=== PATIENT | male | born 1950 | race Caucasian/White ===

== ENCOUNTER 2018-10-26 13:49 | Inpatient (IN) | payer MEDICARE, OTHER ==
[2018-10-26] MEDS ORDERED: ACETAMINOPHEN 325 MG TABLET PO ONE (14:16)
[2018-10-26] MEDS ORDERED: DIPH/PERTUSS(ACELL)/TETANUS VAC/PF 0.5 ML SYR (>=10YO) IM ONE (14:16)
[2018-10-26] MEDS ORDERED: NORMAL SALINE 1000 ML 1,000 ML IV ONE ×2 (14:24→18:15)
[2018-10-26 14:57] LABS: VENOUS BLOOD BASE EXCESS -0.9 mmol/L; VENOUS BLOOD PCO2 36.1 mmHg (35-63); VENOUS BLOOD PH 7.42 (7.30-7.42)
[2018-10-26 14:58] LABS: HEMATOCRIT 41.7 % (37.9-51.0); HEMOGLOBIN 15.3 g/dL (13.5-17.0); MEAN CORPUSCULAR HGB CONC 36.8 g/dL (32.0-36.0); MEAN CORPUSCULAR VOLUME 92 fl (80-97); PLATELET COUNT 143 10^3/uL (150-450); RED BLOOD COUNT 4.51 10^6/uL (4.35-5.55); RED CELL DISTRIBUTION WIDTH 12.3 % (11.5-14.0); WHITE BLOOD COUNT 11.2 10^3/uL (4.0-10.5)
[2018-10-26 15:03] LABS: PROTHROMBIN TIME 13.7 SEC (11.4-15.4)
[2018-10-26 15:05] LABS: D-DIMER 2.58 ug/mL (0.00-0.50)
[2018-10-26 15:13] LABS: ALANINE AMINOTRANSFERASE 46 U/L (21-72); ALBUMIN 4.4 g/dL (3.5-5.0); ALKALINE PHOSPHATASE 112 U/L (38-126); ANION GAP 13 (5-19); ASPARTATE AMINO TRANSFERASE 89 U/L (17-59); BILIRUBIN,DIRECT 0.6 mg/dL (0.0-0.4); BILIRUBIN,TOTAL 1.7 mg/dL (0.2-1.3); BLOOD UREA NITROGEN 10 mg/dL (7-20); CARBON DIOXIDE 23 mmol/L (22-30); CHLORIDE 78 mmol/L (98-107); GLUCOSE 155 mg/dL (75-110); POTASSIUM 4.3 mmol/L (3.6-5.0); TOTAL PROTEIN 7.1 g/dL (6.3-8.2)
--- NOTE | 2018-10-26 15:17 | RADIOLOGY REPORT (SQ) ---
EXAM DESCRIPTION: CT HEAD WITHOUT; CT FACIAL AREA WITHOUT COMPLETED DATE/TIME: 10/26/2018 3:09 pm REASON FOR STUDY: weakness, fall, facial injury COMPARISON: None. TECHNIQUE: Axial images acquired through the brain and facial bones without intravenous contrast. I mages reviewed with bone, brain and subdural windows. Additional sagittal and coronal reconstruction s were generated. Images stored on PACS. All CT scanners at this facility use dose modulation, iterative reconstruction, and/or weight based d osing when appropriate to reduce radiation dose to as low as reasonably achievable (ALARA). [facility]: Dose Right [facility]: CareDose [facility]: Dose Right [facility]: Teradose 4D [facility]: [employer] RADIATION DOSE: CT Rad equipment meets quality standard of care and radiation dose reduction techniq ues were employed. CTDIvol: 53.2 mGy. DLP: 1097 mGy-cm.; CT Rad equipment meets quality standard of c are and radiation dose reduction techniques were employed. CTDIvol: 30.4 mGy. DLP: 600 mGy-cm. mGy. LIMITATIONS: None. FINDINGS: VENTRICLES: Normal size and contour. CEREBRUM: No masses. No hemorrhage. No midline shift. No evidence for acute infarction. Normal gra y/white matter differentiation. No areas of low density in the white matter. CEREBELLUM: No masses. No hemorrhage. No alteration of density. No evidence for acute infarction. EXTRAAXIAL SPACES: No fluid collections. No masses. FACIAL BONES: No displaced fractures. ORBITS AND GLOBE: No intra- or extraconal masses. Normal contour of globe without masses. CALVARIUM: No fracture. PARANASAL SINUSES: No fluid or mucosal thickening. SOFT TISSUES: Soft tissue laceration and hematoma of the forehead. OTHER: No other significant finding. IMPRESSION: 1. No acute intracranial pathology. 2. No displaced fractures of the facial bones. 3. Soft tissue laceration and hematoma of the forehead. EVIDENCE OF ACUTE STROKE: NO. COMMENT: Quality ID # [id number]: Final reports with documentation of one or more dose reduction techniques (e.g., Automated exposure control, adjustment of the mA and/or kV according to patient size, use of iterative reconstruction technique) TECHNICAL DOCUMENTATION: JOB ID: [id number] [employer]- All Rights Reserved Reading location - IP/workstation name: [email or web address]
--- NOTE | 2018-10-26 15:18 | RADIOLOGY REPORT (SQ) ---
EXAM DESCRIPTION: CT CERVICAL SPINE WITHOUT COMPLETED DATE/TIME: 10/26/2018 3:09 pm REASON FOR STUDY: weakness, fall, facial injury COMPARISON: None. TECHNIQUE: Axial images acquired through the cervical spine without intravenous contrast. Images re viewed with lung, soft tissue and bone windows. Reconstructed coronal and sagittal MPR images review ed. Images stored on PACS. All CT scanners at this facility use dose modulation, iterative reconstruction, and/or weight based d osing when appropriate to reduce radiation dose to as low as reasonably achievable (ALARA). [facility]: Dose Right [facility]: CareDose [facility]: Dose Right [facility]: Teradose 4D [facility]: Smart [employer] RADIATION DOSE: CT Rad equipment meets quality standard of care and radiation dose reduction techniq ues were employed. CTDIvol: 24.4 mGy. DLP: 464 mGy-cm. mGy. LIMITATIONS: None. FINDINGS: ALIGNMENT: Anatomic. MINERALIZATION: Normal. VERTEBRAL BODIES: No fractures or dislocation. DISCS: Generally moderate multilevel disc degenerative disease of the cervical spine, focally severe at C5-C6. FACETS, LATERAL MASSES, POSTERIOR ELEMENTS: Moderate to severe multilevel facet degenerative disease . No fractures. No dislocation. No acute findings. HARDWARE: None in the spine. VISUALIZED RIBS: No fractures. LUNG APICES AND SOFT TISSUES: No significant or acute findings. OTHER: No other significant finding. IMPRESSION: No fracture or static subluxation of the cervical spine. TECHNICAL DOCUMENTATION: JOB ID: [id number] Quality ID # [id number]: Final reports with documentation of one or more dose reduction techniques (e.g., Au tomated exposure control, adjustment of the mA and/or kV according to patient size, use of iterative reconstruction technique) 2010 [email or web address]- All Rights Reserved Reading location - IP/workstation name: [email or web address]
[2018-10-26 15:22] LABS: ALCOHOL < 10 mg/dL (NONE DETECTED); CREATINE KINASE 2378 U/L (55-170)
[2018-10-26 15:25] LABS: CREATINE KINASE MB 12.4 ng/mL (<4.55)
--- NOTE | 2018-10-26 15:27 | RADIOLOGY REPORT (SQ) ---
EXAM DESCRIPTION: CHEST 2 VIEWS COMPLETED DATE/TIME: 10/26/2018 3:12 pm REASON FOR STUDY: cough, weakness COMPARISON: None. EXAM PARAMETERS: NUMBER OF VIEWS: two views TECHNIQUE: Digital Frontal and Lateral radiographic views of the chest acquired. RADIATION DOSE: NA LIMITATIONS: none FINDINGS: LUNGS AND PLEURA: No opacities, masses or pneumothorax. No pleural effusion. MEDIASTINUM AND HILAR STRUCTURES: No masses or contour abnormalities. HEART AND VASCULAR STRUCTURES: Heart normal size. No evidence for failure. BONES: No acute findings. HARDWARE: None in the chest. OTHER: No other significant finding. IMPRESSION: NO ACUTE RADIOGRAPHIC FINDING IN THE CHEST. TECHNICAL DOCUMENTATION: JOB ID: [id number] [employer]- All Rights Reserved Reading location - IP/workstation name: [email or web address]
[2018-10-26 15:35] LABS: TROPONIN I 0.053 ng/mL
[2018-10-26 15:47] LABS: ABSOLUTE LYMPHOCYTES# (MANUAL) 0.3 10^3/uL (0.5-4.7); ABSOLUTE MONOCYTES # (MANUAL) 0.8 10^3/uL (0.1-1.4); ABSOLUTE NEUTROPHILS# (MANUAL) 10.1 10^3/uL (1.7-8.2); BASOPHILS % (MANUAL) 0 % (0-2); EOSINOPHILS % (MANUAL) 0 % (0-6); LYMPHOCYTES % (MANUAL) 3 % (13-45); MONOCYTES % (MANUAL) 7 % (3-13); SEGMENTED NEUTROPHILS % (MAN) 90 % (42-78); TOTAL CELLS COUNTED 100
[2018-10-26 15:48] LABS: PLATELET COMMENT DECREASED; TOXIC GRANULATION SLIGHT; TOXIC VACUOLATION PRESENT
--- NOTE | 2018-10-26 16:00 | ER Document Report ---
ED Dizziness/Weakness <LEILA RUGGIERO Hector - Last Filed: 10/26/18 16:00> - General Mode of Arrival: Medic Information source: Patient - HPI Patient complains to provider of: Weakness Onset: Last week Onset/Duration: Worse Quality of pain: No pain Associated symptoms: Loss of strength, Recent fall. denies: Chest pain, Confused, Fainted, Headache, Less responsive, Nausea, Short of breath, Vertigo, Vomiting Baseline gait: Walks w/o assistance <LARA CURTIS - Last Filed: 10/26/18 20:02> - General Chief Complaint: General Weakness Stated Complaint: LEG WEAKNESS Time Seen by Provider: 10/26/18 14:03 Notes: Patient presents with a complaint of generalized weakness. Patient states he has had a cold for the past week and felt generally weak over that same time period. Patient states that he was taken his son to a doctor's appointment and got weak in his extremities and fell hitting his head. There was no loss of consciousness and patient denies any syncopal episode. Patient does have abrasions to bilateral hands and facial area with forehead swelling. Patient denies any nausea or vomiting. Patient states that several hours later he was walking across his yard and felt very weak and fell in the yard and was unable to get up and walk anymore. Patient was assisted but had a very unsteady gait with EMS. Patient denies any chest pain, abdominal pain or back pain. Patient denies any headache, nausea or vomiting. Patient does admit to drinking about 12 beers a day although states he only had about 4 or 5 beers yesterday and has not had any alcohol today. Patient denies any use of drugs. Patient denies any significant medical history although does not see a physician regularly. (LARA CURTIS) - Related Data Allergies/Adverse Reactions: No Known Allergies Allergy (Verified 10/26/18 15:34) Past Medical History - General Information source: Patient - Social History Smoking Status: Former Smoker Frequency of alcohol use: Heavy Drug Abuse: None Occupation: None Lives with: Family Family History: Reviewed & Not Pertinent Patient has suicidal ideation: No Patient has homicidal ideation: No - Medical History Medical History: Negative Renal/ Medical History: Denies: Hx Peritoneal Dialysis Past Surgical History: Reports: Hx Herniorrhaphy <LARA CURTIS - Last Filed: 10/26/18 20:02> Review of Systems - Review of Systems Constitutional: Weakness, Recent illness - Recent upper respiratory symptoms. denies: Fever EENT: No symptoms reported Cardiovascular: No symptoms reported. denies: Chest pain, Palpitations, Syncope, Dizziness Respiratory: Cough. denies: Short of breath Gastrointestinal: No symptoms reported. denies: Abdominal pain, Nausea, Vomiting Genitourinary: No symptoms reported. denies: Dysuria, Flank pain Male Genitourinary: No symptoms reported Musculoskeletal: No symptoms reported. denies: Back pain, Muscle pain Skin: No symptoms reported Hematologic/Lymphatic: No symptoms reported Neurological/Psychological: Weakness - Generalized. denies: Confusion, Dementia, Lost consciousness, Headaches <LARA CURTIS - Last Filed: 10/26/18 20:02> Physical Exam - General General appearance: Appears well, Alert In distress: Mild - HEENT Head: Abrasions - Abrasion to forehead, Ecchymosis. No: Racoon's eyes Eyes: Normal Conjunctiva: Normal Extraocular movements intact: Yes Eyelashes: Normal Pupils: PERRL Ears: Normal External canal: Normal Tympanic membrane: Normal. No: Hemotympanum Nasal: Normal Mouth/Lips: Normal. No: Dental fracture Mucous membranes: Normal Pharynx: Normal Neck: Normal, Supple. No: Lymphadenopathy, Meningismus - Respiratory Respiratory status: No respiratory distress Chest status: Nontender Breath sounds: Nonproductive cough, Rhonchi Chest palpation: Normal. No: Tender - Cardiovascular Rhythm: Regular Heart sounds: S1 appreciated, S2 appreciated Murmur: No - Abdominal Inspection: Obese Distension: No distension Bowel sounds: Normal Tenderness: Nontender Organomegaly: No organomegaly - Back Back: Normal. No: Deformity/step-off, CVA tenderness, Vertebra tenderness - Extremities General upper extremity: Normal inspection, Nontender. No: Normal strength - Patient unable to hold leg off of the stretcher for at least 5 seconds against gravity General lower extremity: Normal inspection, Nontender. No: Normal strength - Patient unable to hold extremity off of stretcher longer than 5 seconds against gravity - Neurological Neuro grossly intact: Yes Cognition: Normal Bet[place] Coma Scale Eye Opening: Spontaneous Foreign Coma Scale Verbal: Oriented Foreign Coma Scale Motor: Obeys Commands Foreign Coma Scale Total: 15 Speech: Normal. No: Dysarthria Cranial nerves: Normal. No: Facial palsy Additional motor exam normals: Weakness - Diffuse generalized - Psychological Associated symptoms: Normal affect, Normal mood - Skin Skin Temperature: Warm Skin Moisture: Dry Skin irregularity: other - Abrasion with superficial laceration to forehead, scattered abrasions to bilateral hands <LARA CURTIS - Last Filed: 10/26/18 20:02> - Vital signs Vitals: Pulse Ox 95 10/26/18 14:15 Course - Laboratory Result Diagrams: 10/26/18 14:30 10/26/18 14:30 <LEILA RUGGIERO - Last Filed: 10/26/18 16:00> - Laboratory Result Diagrams: 10/26/18 14:30 10/26/18 14:30 - Diagnostic Test Radiology reviewed: Reports reviewed <KIRSTENLARA - Last Filed: 10/26/18 20:02> - Re-evaluation Re-evalutation: 10/26/18 16:00 I personally evaluated this patient. He is mentating appropriately and in no acute distress. His sodium was 114 and I asked nursing to place seizure precautions on the bed. Patient is a daily alcoholic and has a negative alcohol level. He denies history of alcohol withdrawal symptoms in the past but is at risk for acute alcohol withdrawal seizures as well as hyponatremic seizures. Patient will be admitted to the hospital for further care. His complete workup is not resulted at this time however I agree with all plan of care already established. (LEILA RUGGIERO) 10/26/18 16:[address] Leila Ruggiero regarding patient presentation and diagnostic evaluation. Agrees with plan for admission, although advises waiting for results of CTA to result first. Patient continues to deny any recent syncopal episode. States that he fell due to generalized weakness. Patient does have an elevated troponin although denies any chest pain symptoms. Patient does complain of nonproductive cough at this time. Patient denies any recent bedrest or recent immobilization. Patient with elevated d-dimer test. Patient continues to deny any pain complaints symptoms. Patient's tachycardia improved at this time. Family at bedside and updated regarding admission plan of care. Patient is agreeable with admission at this time. 10/26/18 18:32 Patient CTA reviewed, no concern for PE or pneumonia. Consulted with hospitalist Elizabeth SERVIN who agrees to accept patient for admission to telemetry med bed at this time. 10/26/18 19:59 (LARA CURTIS) - Vital Signs Vital signs: Temp Pulse Resp BP Pulse Ox 19 165/81 H 95 10/26/18 19:01 10/26/18 19:01 10/26/18 19:01 - Laboratory Laboratory results interpreted by me: 10/26/18 10/26/18 10/26/18 14:30 14:30 14:30 WBC 11.2 H MCH 34.0 H MCHC 36.8 H Plt Count 143 L Seg Neuts % (Manual) 90 H Lymphocytes % (Manual) 3 L Abs Neuts (Manual) 10.1 H Abs Lymphs (Manual) 0.3 L D-Dimer 2.58 H Sodium 114.0 L* Chloride 78 L Glucose 155 H POC Glucose Total Bilirubin 1.7 H Direct Bilirubin 0.6 H AST 89 H Creatine Kinase 2378 H CK-MB (CK-2) 10/26/18 10/26/18 14:30 15:42 WBC MCH MCHC Plt Count Seg Neuts % (Manual) Lymphocytes % (Manual) Abs Neuts (Manual) Abs Lymphs (Manual) D-Dimer Sodium Chloride Glucose POC Glucose 147 H Total Bilirubin Direct Bilirubin AST Creatine Kinase CK-MB (CK-2) 12.40 H 10/26/18 18:33 Labs- Entire Visit 10/26/18 10/26/18 10/26/18 14:30 14:30 14:30 WBC 11.2 H RBC 4.51 Hgb 15.3 Hct 41.7 MCV 92 MCH 34.0 H MCHC 36.8 H RDW 12.3 Plt Count 143 L Total Counted 100 Seg Neutrophils % Not Reportable Seg Neuts % (Manual) 90 H Lymphocytes % Not Reportable Lymphocytes % (Manual) 3 L Monocytes % Not Reportable Monocytes % (Manual) 7 Eosinophils % Not Reportable Eosinophils % (Manual) 0 Basophils % Not Reportable Basophils % (Manual) 0 Absolute Neutrophils Not Reportable Abs Neuts (Manual) 10.1 H Absolute Lymphocytes Not Reportable Abs Lymphs (Manual) 0.3 L Absolute Monocytes Not Reportable Abs Monocytes (Manual) 0.8 Absolute Eosinophils Not Reportable Absolute Eos (Manual) 0.0 Absolute Basophils Not Reportable Abs Basophils (Manual) 0.0 Toxic Granulation SLIGHT Toxic Vacuolation PRESENT Platelet Comment DECREASED PT 13.7 INR 1.00 D-Dimer 2.58 H VBG pH VBG pCO2 VBG HCO3 VBG Base Excess Sodium 114.0 L* Potassium 4.3 Chloride 78 L Carbon Dioxide 23 Anion Gap 13 BUN 10 Creatinine 0.61 Est GFR ( Amer) > 60 Est GFR (Non-Af Amer) > 60 Glucose 155 H POC Glucose Lactic Acid Calcium 9.0 Magnesium 2.1 Total Bilirubin 1.7 H Direct Bilirubin 0.6 H Neonat Total Bilirubin Not Reportable Neonat Direct Bilirubin Not Reportable Neonat Indirect Bili Not Reportable AST 89 H ALT 46 Alkaline Phosphatase 112 Creatine Kinase 2378 H CK-MB (CK-2) Troponin I Total Protein 7.1 Albumin 4.4 TSH Serum Alcohol < 10 10/26/18 10/26/18 10/26/18 14:30 14:30 14:30 WBC RBC Hgb Hct MCV MCH MCHC RDW Plt Count Total Counted Seg Neutrophils % Seg Neuts % (Manual) Lymphocytes % Lymphocytes % (Manual) Monocytes % Monocytes % (Manual) Eosinophils % Eosinophils % (Manual) Basophils % Basophils % (Manual) Absolute Neutrophils Abs Neuts (Manual) Absolute Lymphocytes Abs Lymphs (Manual) Absolute Monocytes Abs Monocytes (Manual) Absolute Eosinophils Absolute Eos (Manual) Absolute Basophils Abs Basophils (Manual) Toxic Granulation Toxic Vacuolation Platelet Comment PT INR D-Dimer VBG pH 7.42 VBG pCO2 36.1 VBG HCO3 23.0 VBG Base Excess -0.9 Sodium Potassium Chloride Carbon Dioxide Anion Gap BUN Creatinine Est GFR ( Amer) Est GFR (Non-Af Amer) Glucose POC Glucose Lactic Acid 2.0 Calcium Magnesium Total Bilirubin Direct Bilirubin Neonat Total Bilirubin Neonat Direct Bilirubin Neonat Indirect Bili AST ALT Alkaline Phosphatase Creatine Kinase CK-MB (CK-2) 12.40 H Troponin I 0.053 Total Protein Albumin TSH Serum Alcohol 10/26/18 10/26/18 14:30 15:42 WBC RBC Hgb Hct MCV MCH MCHC RDW Plt Count Total Counted Seg Neutrophils % Seg Neuts % (Manual) Lymphocytes % Lymphocytes % (Manual) Monocytes % Monocytes % (Manual) Eosinophils % Eosinophils % (Manual) Basophils % Basophils % (Manual) Absolute Neutrophils Abs Neuts (Manual) Absolute Lymphocytes Abs Lymphs (Manual) Absolute Monocytes Abs Monocytes (Manual) Absolute Eosinophils Absolute Eos (Manual) Absolute Basophils Abs Basophils (Manual) Toxic Granulation Toxic Vacuolation Platelet Comment PT INR D-Dimer VBG pH VBG pCO2 VBG HCO3 VBG Base Excess Sodium Potassium Chloride Carbon Dioxide Anion Gap BUN Creatinine Est GFR ( Amer) Est GFR (Non-Af Amer) Glucose POC Glucose 147 H Lactic Acid Calcium Magnesium Total Bilirubin Direct Bilirubin Neonat Total Bilirubin Neonat Direct Bilirubin Neonat Indirect Bili AST ALT Alkaline Phosphatase Creatine Kinase CK-MB (CK-2) Troponin I Total Protein Albumin TSH 1.46 Serum Alcohol (LARA UCRTIS) Discharge <LEILA RUGGIERO - Last Filed: 10/26/18 16:00> - Discharge Admitting Provider: Hospitalist Unit Admitted: ICU <LARA CURTIS - Last Filed: 10/26/18 20:02> - Discharge Clinical Impression: Hyponatremia, Hypochloremia, ETOHism, Weakness Condition: Fair Disposition: ADMITTED INPATIENT
[2018-10-26] MEDS ORDERED: ASPIRIN 81 MG TABLET, CHEWABLE PO ONE (16:10)
[2018-10-26] MEDS ORDERED: THIAMINE HCL 100 MG, FOLIC ACID 1 MG in NORMAL SALINE 250 ML IV ONE (18:14)
--- NOTE | 2018-10-26 18:24 | RADIOLOGY REPORT (SQ) ---
EXAM DESCRIPTION: CTA CHEST COMPLETED DATE/TIME: 10/26/2018 6:11 pm REASON FOR STUDY: ?syncope, elevated dimer COMPARISON: None. TECHNIQUE: CT scan of the chest performed using helical scanning technique with dynamic intravenous contrast injection. Images reviewed with lung, soft tissue and bone windows. Reconstructed coronal and sagittal MPR images reviewed. Additional 3 dimensional post-processing performed to develop Maximal Intensity Projection images (MA P). All images stored on PACS. All CT scanners at this facility use dose modulation, iterative reconstruction, and/or weight based d osing when appropriate to reduce radiation dose to as low as reasonably achievable (ALARA). [facility]: Dose Right [facility]: CareDose [facility]: Dose Right [facility]: Teradose 4D [facility]: [employer] CONTRAST TYPE AND DOSE: contrast/concentration: Isovue 350.00 mg/ml; Total Contrast Delivered: 84.0 ml; Total Saline Delivered: 110.0 ml Contrast bolus adequate for pulmonary arteries and aorta. RENAL FUNCTION: BUN 10 creatinine 0.61. RADIATION DOSE: CT Rad equipment meets quality standard of care and radiation dose reduction techniq ues were employed. CTDIvol: 29.4 - 33.1 mGy. DLP: 1168 mGy-cm. . LIMITATIONS: None. FINDINGS: LUNGS AND PLEURA: Basilar scarring. No masses, infiltrates, or pneumothorax. No pleural effusions or pleural calcifications. AORTA AND GREAT VESSELS: No aneurysm. No dissection. HEART: No pericardial effusion. No significant coronary artery calcifications. PULMONARY ARTERIES: No emboli visualized in the main pulmonary arteries or the segmental branches. HILAR AND MEDIASTINAL STRUCTURES: No identified masses or abnormal nodes. HARDWARE: None in the chest. UPPER ABDOMEN: No significant findings. Limited exam. THYROID AND OTHER SOFT TISSUES: No masses. No adenopathy. BONES: No acute or significant finding. 3D MIPS: Confirm above findings. OTHER: No other significant finding. IMPRESSION: NORMAL CTA OF THE CHEST. NO PULMONARY EMBOLI. COMMENT: Quality ID # [id number]: Final reports with documentation of one or more dose reduction techniques (e.g., Automated exposure control, adjustment of the mA and/or kV according to patient size, use of iterative reconstruction technique) TECHNICAL DOCUMENTATION: JOB ID: [id number] [employer]- All Rights Reserved Reading location - IP/workstation name: [email or web address]
[2018-10-26] MEDS ORDERED: IPRATROPIUM/ALBUTEROL 0.5-2.5 MG/3 ML AMPUL NEB ONE (18:35)
[2018-10-26] MEDS ORDERED: MAG HYDROX/AL HYDROX/SIMETH SUSP 30 ML UDCUP PO PRN (18:55)
[2018-10-26] MEDS ORDERED: ONDANSETRON HCL INJ/PF 4 MG/2 ML SDV IV PRN (18:55)
[2018-10-26] MEDS ORDERED: IPRATROPIUM/ALBUTEROL 0.5-2.5 MG/3 ML AMPUL NEB PRN (18:55)
[2018-10-26] MEDS ORDERED: MAGNESIUM HYDROXIDE SUSP 30 ML UDCUP PO PRN (18:55)
[2018-10-26] MEDS ORDERED: FUROSEMIDE INJ/PF 20 MG/2 ML SDV IV ONE (19:45)
[2018-10-26] MEDS: IPRATROPIUM/ALBUTEROL 0.5-2.5 MG/3 ML AMPUL NEB SCH (19:54)
[2018-10-26] MEDS: LORAZEPAM 1 MG TABLET PO SCH (19:55)
[2018-10-26 20:15] LABS: APPEARANCE,URINE CLEAR; BILIRUBIN,URINE NEGATIVE (NEGATIVE); COLOR,URINE YELLOW; GLUCOSE, URINE >=500 mg/dL (NEGATIVE); KETONES,URINE 20 mg/dL (NEGATIVE); LEUKOCYTE ESTERASE,URINE NEGATIVE (NEGATIVE); NITRITE,URINE NEGATIVE (NEGATIVE); PROTEIN,URINE 30 mg/dL (NEGATIVE); URINE SPECIFIC GRAVITY 1.018; UROBILINOGEN,URINE NEGATIVE mg/dL (<2.0)
[2018-10-26 20:47] LABS: ANION GAP 15 (5-19); BLOOD UREA NITROGEN 8 mg/dL (7-20); CALCIUM 8.5 mg/dL (8.4-10.2); CARBON DIOXIDE 19 mmol/L (22-30); CHLORIDE 84 mmol/L (98-107); GLUCOSE 129 mg/dL (75-110); POTASSIUM 3.7 mmol/L (3.6-5.0)
[2018-10-26 20:58] LABS: LIPASE 161.1 U/L (23-300); PHOSPHORUS 3.2 mg/dL (2.5-4.5)
[2018-10-26 21:07] LABS: SODIUM 118.3 mmol/L (137-145)
--- NOTE | 2018-10-26 21:23 | EKG REPORT ---
SEVERITY:- ABNORMAL ECG - SINUS TACHYCARDIA RIGHT BUNDLE BRANCH BLOCK : Confirmed by: Brittany Valenzuela MD 26-Oct-2018 21:23:04
[2018-10-26] MEDS: HEPARIN SOD (PORCINE) 5,000 UNIT/ML 1 ML SYRINGE SUBCUT SCH (22:28)
[2018-10-26] MEDS: AZITHROMYCIN 500 MG in DEXTROSE 5%-WATER 250 ML IV SCH (22:28)
[2018-10-27] MEDS: IPRATROPIUM/ALBUTEROL 0.5-2.5 MG/3 ML AMPUL NEB SCH ×3 (00:34→16:33)
[2018-10-27] MEDS ORDERED: LORAZEPAM INJ 2 MG/1 ML VIAL IV ONE (02:00)
[2018-10-27 02:40] LABS: ABSOLUTE LYMPHOCYTES (AUTO) 0.8 10^3/uL (0.5-4.7); ABSOLUTE MONOCYTES (AUTO) 0.8 10^3/uL (0.1-1.4); ABSOLUTE NEUT (AUTO) 6.9 10^3/uL (1.7-8.2); BASOPHILS % (AUTO) 0.2 % (0-2); HEMATOCRIT 41.7 % (37.9-51.0); HEMOGLOBIN 15.1 g/dL (13.5-17.0); LYMPHOCYTES % (AUTO) 9.5 % (13-45); MEAN CORPUSCULAR HEMOGLOBIN 33.8 pg (27.0-33.4); MEAN CORPUSCULAR HGB CONC 36.2 g/dL (32.0-36.0); MEAN CORPUSCULAR VOLUME 93 fl (80-97); MONOCYTES % (AUTO) 9.5 % (3-13); PLATELET COUNT 113 10^3/uL (150-450); RED BLOOD COUNT 4.47 10^6/uL (4.35-5.55); RED CELL DISTRIBUTION WIDTH 12.1 % (11.5-14.0); SEGMENTED NEUTROPHILS % (AUTO) 80.8 % (42-78); TOTAL CELLS COUNTED % (AUTO) 100 %; WHITE BLOOD COUNT 8.6 10^3/uL (4.0-10.5)
[2018-10-27 02:58] LABS: ALANINE AMINOTRANSFERASE 47 U/L (21-72); ALBUMIN 3.6 g/dL (3.5-5.0); ALKALINE PHOSPHATASE 96 U/L (38-126); ASPARTATE AMINO TRANSFERASE 122 U/L (17-59); BILIRUBIN,DIRECT 0.4 mg/dL (0.0-0.4); BILIRUBIN,TOTAL 1.3 mg/dL (0.2-1.3); BLOOD UREA NITROGEN 8 mg/dL (7-20); CALCIUM 8.3 mg/dL (8.4-10.2); CARBON DIOXIDE 23 mmol/L (22-30); CHLORIDE 85 mmol/L (98-107); GLUCOSE 122 mg/dL (75-110); POTASSIUM 3.5 mmol/L (3.6-5.0); TOTAL PROTEIN 6.3 g/dL (6.3-8.2)
[2018-10-27 03:00] LABS: ANION GAP 13 (5-19)
[2018-10-27 03:10] LABS: CREATINE KINASE MB 11.5 ng/mL (<4.55); SODIUM 120.9 mmol/L (137-145); TROPONIN I 0.046 ng/mL
[2018-10-27 03:19] LABS: CREATINE KINASE 4848 U/L (55-170)
[2018-10-27] MEDS: LORAZEPAM 1 MG TABLET PO SCH (03:24)
[2018-10-27] MEDS ORDERED: HYDRALAZINE HCL INJ/PF 20 MG/1 ML SDV IV ONE (05:15)
--- NOTE | 2018-10-27 05:23 | PDOC H&P ---
History of Present Illness Admission Date/PCP: 10/26/18 18:51 Patient complains of: Generalized weakness and falls History of Present Illness: SONDRA GIPSON is a 67 year old male with a past medical history of alcohol dependence who presents with approximately 1 week of generalized weakness and at least 2 falls to the ground with inability return to standing. During each event he states he simply felt weak and his legs gave out. No loss of consciousness, limb shaking, dizziness or resulting headache, blurred vision nausea or vomiting. He did sustain a 4 cm laceration to the left forehead not requiring sutures. In the emergency room he is found with a sodium of 114, tremulous with global wheezing requiring albuterol, Atrovent and BiPAP. He denies history of COPD but has a [id number] smoking discontinuing 20 years ago. He admits to alcohol drinking habit of approximately 12 beers per day he denies a history of alcohol withdrawal, blackout or seizure but does not recall the last time he went without drinking. Past Medical History Medical History: None Psychiatric Medical History: Reports: Alcohol Dependency Past Surgical History Past Surgical History: Reports: Herniorrhaphy Social History Information Source: Patient Lives with: Family Smoking Status: Former Smoker Frequency of Alcohol Use: Heavy Amount of Alcoholic Beverages Per Day: 12-beer minimum Hx Recreational Drug Use: No Hx Prescription Drug Abuse: No - Advance Directive Resuscitation Status: Full Code Family History Family History: COPD Parental Family History Reviewed: Yes Children Family History Reviewed: Yes Sibling(s) Family History Reviewed.: Yes Medication/Allergy Home Medications: No Home Medications 10/26/18 Allergies/Adverse Reactions: No Known Allergies Allergy (Verified 10/26/18 15:34) Review of Systems Constitutional: PRESENT: as per HPI, fatigue, weakness. ABSENT: fever(s), headache(s) Eyes: ABSENT: visual disturbances Ears: ABSENT: hearing changes Cardiovascular: PRESENT: edema, palpitations. ABSENT: dyspnea on exertion, orthropnea Respiratory: PRESENT: as per HPI, cough, dyspnea, sputum. ABSENT: hemoptysis Gastrointestinal: PRESENT: as per HPI, bloating. ABSENT: constipation, nausea, vomiting Musculoskeletal: PRESENT: as per HPI, muscle weakness. ABSENT: back pain, deformity, joint swelling Integumentary: PRESENT: as per HPI - Forehead laceration, abrasions to the knuckles and knees. ABSENT: rash, wounds Neurological: PRESENT: as per HPI, abnormal gait, abnormal movements, focal weakness, frequent falls, lack of coordination, numbness, paresthesias, weakness. ABSENT: confusion, convulsions, dizziness, memory loss, syncope Psychiatric: ABSENT: anxiety, depression, homidical ideation, suicidal ideation Endocrine: ABSENT: cold intolerance, heat intolerance, polydipsia, polyuria Hematologic/Lymphatic: ABSENT: easy bleeding, easy bruising Physical Exam Vital Signs: Temp Pulse Resp BP Pulse Ox 99.1 F 106 H 17 175/84 H 95 10/27/18 03:51 10/26/18 23:32 10/27/18 02:00 10/27/18 01:41 10/27/18 02:00 Intake & Output 10/25/18 10/26/18 10/27/18 11:59 11:59 11:59 Intake Total 1684.2 Output Total 1100 Balance 584.2 Weight 90.9 kg General appearance: PRESENT: cooperative, disheveled, morbidly obese, severe distress Head exam: PRESENT: normocephalic, other - 4 cm scalp laceration to left forehead. No exudate Eye exam: PRESENT: conjunctiva pink, EOMI, PERRLA. ABSENT: scleral icterus Ear exam: PRESENT: normal external ear exam Mouth exam: PRESENT: moist, tongue midline Neck exam: ABSENT: carotid bruit, JVD, lymphadenopathy, thyromegaly Respiratory exam: PRESENT: accessory muscle use, crackles, prolonged expiratory phas, rales, symmetrical, tachypnea, wheezes. ABSENT: rhonchi Cardiovascular exam: PRESENT: RRR, tachycardia. ABSENT: diastolic murmur, rubs, systolic murmur Pulses: PRESENT: normal dorsalis pedis pul Vascular exam: PRESENT: normal capillary refill GI/Abdominal exam: PRESENT: normal bowel sounds, soft. ABSENT: distended, guarding, mass, organolmegaly, rebound, tenderness Rectal exam: PRESENT: deferred Extremities exam: PRESENT: full ROM. ABSENT: calf tenderness, clubbing, pedal edema Neurological exam: PRESENT: alert, awake, oriented to person, oriented to place, oriented to time, oriented to situation, CN II-XII grossly intact. ABSENT: motor sensory deficit Psychiatric exam: PRESENT: anxious Skin exam: PRESENT: abrasion - Knuckles and knees Results Laboratory Results: 10/27/18 02:33 10/27/18 02:33 10/26/18 10/26/18 10/26/18 14:30 14:30 14:30 WBC 11.2 H RBC 4.51 Hgb 15.3 Hct 41.7 MCV 92 MCH 34.0 H MCHC 36.8 H RDW 12.3 Plt Count 143 L Seg Neutrophils % Not Reportable Lymphocytes % Not Reportable Monocytes % Not Reportable Eosinophils % Not Reportable Basophils % Not Reportable Absolute Neutrophils Not Reportable Absolute Lymphocytes Not Reportable Absolute Monocytes Not Reportable Absolute Eosinophils Not Reportable Absolute Basophils Not Reportable VBG pH VBG pCO2 VBG HCO3 VBG Base Excess Sodium 114.0 L* Potassium 4.3 Chloride 78 L Carbon Dioxide 23 Anion Gap 13 BUN 10 Creatinine 0.61 Est GFR ( Amer) > 60 Est GFR (Non-Af Amer) > 60 Glucose 155 H Lactic Acid 2.0 Calcium 9.0 Phosphorus Magnesium 2.1 Total Bilirubin 1.7 H AST 89 H ALT 46 Alkaline Phosphatase 112 Total Protein 7.1 Albumin 4.4 Lipase TSH Urine Color Urine Appearance Urine pH Ur Specific [place] Urine Protein Urine Glucose (UA) Urine Ketones Urine Blood Urine Nitrite Ur Leukocyte Esterase Urine WBC (Auto) Urine RBC (Auto) 10/26/18 10/26/18 10/26/18 14:30 14:30 18:36 WBC RBC Hgb Hct MCV MCH MCHC RDW Plt Count Seg Neutrophils % Lymphocytes % Monocytes % Eosinophils % Basophils % Absolute Neutrophils Absolute Lymphocytes Absolute Monocytes Absolute Eosinophils Absolute Basophils VBG pH 7.42 VBG pCO2 36.1 VBG HCO3 23.0 VBG Base Excess -0.9 Sodium Potassium Chloride Carbon Dioxide Anion Gap BUN Creatinine Est GFR ( Amer) Est GFR (Non-Af Amer) Glucose Lactic Acid Calcium Phosphorus Magnesium Total Bilirubin AST ALT Alkaline Phosphatase Total Protein Albumin Lipase TSH 1.46 Urine Color YELLOW Urine Appearance CLEAR Urine pH 6.0 Ur Specific [place] 1.018 Urine Protein 30 H Urine Glucose (UA) >=500 H Urine Ketones 20 H Urine Blood MODERATE H Urine Nitrite NEGATIVE Ur Leukocyte Esterase NEGATIVE Urine WBC (Auto) 1 Urine RBC (Auto) 0 10/26/18 10/26/18 10/27/18 20:07 20:07 02:33 WBC 8.6 RBC 4.47 Hgb 15.1 Hct 41.7 MCV 93 MCH 33.8 H MCHC 36.2 H RDW 12.1 Plt Count 113 L Seg Neutrophils % 80.8 H Lymphocytes % 9.5 L Monocytes % 9.5 Eosinophils % 0.0 Basophils % 0.2 Absolute Neutrophils 6.9 Absolute Lymphocytes 0.8 Absolute Monocytes 0.8 Absolute Eosinophils 0.0 Absolute Basophils 0.0 VBG pH VBG pCO2 VBG HCO3 VBG Base Excess Sodium 118.3 L* Potassium 3.7 Chloride 84 L Carbon Dioxide 19 L Anion Gap 15 BUN 8 Creatinine 0.50 L Est GFR ( Amer) > 60 Est GFR (Non-Af Amer) > 60 Glucose 129 H Lactic Acid Calcium 8.5 Phosphorus 3.2 Magnesium 2.2 Total Bilirubin AST ALT Alkaline Phosphatase Total Protein Albumin Lipase 161.1 TSH Urine Color Urine Appearance Urine pH Ur Specific [place] Urine Protein Urine Glucose (UA) Urine Ketones Urine Blood Urine Nitrite Ur Leukocyte Esterase Urine WBC (Auto) Urine RBC (Auto) 10/27/18 02:33 WBC RBC Hgb Hct MCV MCH MCHC RDW Plt Count Seg Neutrophils % Lymphocytes % Monocytes % Eosinophils % Basophils % Absolute Neutrophils Absolute Lymphocytes Absolute Monocytes Absolute Eosinophils Absolute Basophils VBG pH VBG pCO2 VBG HCO3 VBG Base Excess Sodium 120.9 L* Potassium 3.5 L Chloride 85 L Carbon Dioxide 23 Anion Gap 13 BUN 8 Creatinine 0.52 Est GFR ( Amer) > 60 Est GFR (Non-Af Amer) > 60 Glucose 122 H Lactic Acid Calcium 8.3 L Phosphorus Magnesium Total Bilirubin 1.3 AST 122 H ALT 47 Alkaline Phosphatase 96 Total Protein 6.3 Albumin 3.6 Lipase TSH Urine Color Urine Appearance Urine pH Ur Specific [place] Urine Protein Urine Glucose (UA) Urine Ketones Urine Blood Urine Nitrite Ur Leukocyte Esterase Urine WBC (Auto) Urine RBC (Auto) 10/26/18 10/26/18 10/27/18 14:30 14:30 02:33 Creatine Kinase 2378 H 4848 H CK-MB (CK-2) 12.40 H Troponin I 0.053 10/27/18 02:33 Creatine Kinase CK-MB (CK-2) 11.50 H Troponin I 0.046 Impressions: Chest X-Ray 10/26/18 14:13 IMPRESSION: NO ACUTE RADIOGRAPHIC FINDING IN THE CHEST. Facial Bones CT 10/26/18 14:14 IMPRESSION: 1. No acute intracranial pathology. 2. No displaced fractures of the facial bones. 3. Soft tissue laceration and hematoma of the forehead. EVIDENCE OF ACUTE STROKE: NO. Head CT 10/26/18 14:14 IMPRESSION: 1. No acute intracranial pathology. 2. No displaced fractures of the facial bones. 3. Soft tissue laceration and hematoma of the forehead. EVIDENCE OF ACUTE STROKE: NO. Cervical Spine CT 10/26/18 14:15 IMPRESSION: No fracture or static subluxation of the cervical spine. Chest/Abdomen CTA 10/26/18 16:08 IMPRESSION: NORMAL CTA OF THE CHEST. NO PULMONARY EMBOLI. Assessment and Plan - Diagnosis (1) Hyponatremia Is this a current diagnosis for this admission?: Yes Plan: Likely secondary to excessive beer intake. Appears euvolemic, fluid restriction trial. Follow-up chemistry every 6 hours (2) Wernicke-Korsakoff syndrome (alcoholic) Is this a current diagnosis for this admission?: Yes Plan: History of prolonged heavy drinking recent onset of uncoordinated gait and falls. Thiamine, folate, B12 ordered follow-up physical therapy eval and MRI brain (3) Acute bronchitis Is this a current diagnosis for this admission?: Yes Plan: Albuterol, Atrovent, BiPAP support. Incentive spirometry and flutter valve (4) COPD exacerbation Is this a current diagnosis for this admission?: Yes Plan: Supplemental oxygen, trial prednisone (5) ETOHism Is this a current diagnosis for this admission?: Yes Plan: Thiamine, folate, Ativan as needed anticipate alcohol withdrawal - Time Time Spent with patient: 35 or more minutes - Inpatient Certification Medical Necessity: Significant Comorbidiites Make Outpatient Treatment Too Risky , Need Close Monitoring Due to Risk of Patient Decompensation
[2018-10-27] MEDS: HEPARIN SOD (PORCINE) 5,000 UNIT/ML 1 ML SYRINGE SUBCUT SCH ×3 (05:44→21:56)
[2018-10-27] MEDS ORDERED: LORAZEPAM INJ 2 MG/1 ML VIAL IV SCH (06:00)
[2018-10-27] MEDS ORDERED: DEXTROSE 50%-WATER SYRINGE 12.5 GM/25 ML DOSE IV PRN (07:00)
[2018-10-27] MEDS ORDERED: DEXTROSE 40% GEL 15 GM TUBE PO PRN (07:00)
[2018-10-27] MEDS ORDERED: DEXTROSE 40% GEL 15 GM TUBE X 2 PO PRN (07:00)
[2018-10-27] MEDS ORDERED: GLUCAGON,HUMAN RECOMB 1 MG INJ IM PRN (07:00)
[2018-10-27] MEDS ORDERED: DEXTROSE 50%-WATER SYRINGE 25 GM/50 ML DOSE IV PRN (07:00)
[2018-10-27 07:38] LABS: ARTERIAL BLOOD BASE EXCESS 1.1 mmol/L; ARTERIAL BLOOD FIO2 28%; ARTERIAL BLOOD H2CO3 0.85 mmol/L (1.05-1.35); ARTERIAL BLOOD HCO3 22.6 mmol/L (20-24); ARTERIAL BLOOD O2 SATURATION 96.8 % (94-98); ARTERIAL BLOOD PCO2 28.2 mmHg (35-45); ARTERIAL BLOOD PH 7.52 (7.35-7.45); ARTERIAL BLOOD PO2 78.6 mmHg (80-100); ARTERIAL BLOOD TOTAL CO2 23.4 mmol/L (23-27)
[2018-10-27] MEDS: DOCUSATE SODIUM 100 MG CAPSULE PO SCH ×2 (09:30→18:51)
[2018-10-27] MEDS: INSULIN REG, HUMAN 100 UNIT/ML 3 ML VIAL (PYX) SUBCUT SCH ×4 (09:30→21:56)
[2018-10-27] MEDS: FOLIC ACID 1 MG TABLET PO SCH (09:31)
[2018-10-27] MEDS: THIAMINE HCL 100 MG TABLET PO SCH (09:31)
[2018-10-27] MEDS: LORAZEPAM INJ 2 MG/1 ML VIAL IV SCH ×4 (10:16→21:56)
[2018-10-27 11:08] LABS: ANION GAP 13 (5-19); BLOOD UREA NITROGEN 9 mg/dL (7-20); CALCIUM 8.4 mg/dL (8.4-10.2); CARBON DIOXIDE 22 mmol/L (22-30); CHLORIDE 87 mmol/L (98-107); GLUCOSE 130 mg/dL (75-110); POTASSIUM 3.6 mmol/L (3.6-5.0); SODIUM 121.9 mmol/L (137-145)
--- NOTE | 2018-10-27 14:18 | PDOC PROGRESS REPORT ---
Subjective Progress Note for:: 10/27/18 Subjective:: This is a 67 year old male with a past medical history of chronic heavy smoking and alcohol dependence who presents with approximately 1 week of generalized weakness and at least 2 falls to the ground with inability return to standing. During each event he states he simply felt weak and his legs gave out. He was found to have profound hyponatremia and was also manifesting sings of alcohol withdrawal. Upon encounter this morning, patient was lethargic. He did get an Ativan this morning for his agitation. He is able to tell me his name but is disoriented to place and time. Family says he drinks at least 12 bottles of beer/day. His grandson says his last drink was last Wednesday night. Reason For Visit: HYPONATREMIA, ETOH DEP, FALL Physical Exam Vital Signs: Temp Pulse Resp BP Pulse Ox 99.7 F 114 H 20 142/67 H 97 10/27/18 11:33 10/27/18 11:33 10/27/18 11:33 10/27/18 11:33 10/27/18 11:33 Intake & Output 10/26/18 10/27/18 10/28/18 06:59 06:59 06:59 Intake Total 1684.2 0 Output Total 1100 Balance 584.2 0 Weight 197 lb 12.074 oz General appearance: PRESENT: no acute distress, well-developed, well-nourished Head exam: PRESENT: atraumatic, normocephalic Eye exam: PRESENT: conjunctiva pink, EOMI, PERRLA. ABSENT: scleral icterus Ear exam: PRESENT: normal external ear exam Mouth exam: PRESENT: moist, tongue midline Neck exam: ABSENT: carotid bruit, JVD, lymphadenopathy, thyromegaly Respiratory exam: PRESENT: rhonchi. ABSENT: rales, wheezes Cardiovascular exam: PRESENT: RRR. ABSENT: diastolic murmur, rubs, systolic murmur Pulses: PRESENT: normal dorsalis pedis pul GI/Abdominal exam: PRESENT: normal bowel sounds, soft. ABSENT: distended, guarding, mass, organolmegaly, rebound, tenderness Rectal exam: PRESENT: deferred Neurological exam: PRESENT: altered, oriented to person, CN II-XII grossly intact. ABSENT: oriented to place, oriented to time, oriented to situation, motor sensory deficit Results Laboratory Results: 10/27/18 02:33 10/27/18 10:19 10/26/18 10/26/18 10/26/18 14:30 14:30 14:30 WBC 11.2 H RBC 4.51 Hgb 15.3 Hct 41.7 MCV 92 MCH 34.0 H MCHC 36.8 H RDW 12.3 Plt Count 143 L Seg Neutrophils % Not Reportable Lymphocytes % Not Reportable Monocytes % Not Reportable Eosinophils % Not Reportable Basophils % Not Reportable Absolute Neutrophils Not Reportable Absolute Lymphocytes Not Reportable Absolute Monocytes Not Reportable Absolute Eosinophils Not Reportable Absolute Basophils Not Reportable Carbonic Acid HCO3/H2CO3 Ratio ABG pH ABG pCO2 ABG pO2 ABG HCO3 ABG O2 Saturation ABG Base Excess VBG pH VBG pCO2 VBG HCO3 VBG Base Excess FiO2 Sodium 114.0 L* Potassium 4.3 Chloride 78 L Carbon Dioxide 23 Anion Gap 13 BUN 10 Creatinine 0.61 Est GFR ( Amer) > 60 Est GFR (Non-Af Amer) > 60 Glucose 155 H Serum Osmolality Lactic Acid 2.0 Calcium 9.0 Phosphorus Magnesium 2.1 Total Bilirubin 1.7 H AST 89 H ALT 46 Alkaline Phosphatase 112 Total Protein 7.1 Albumin 4.4 Lipase TSH Urine Color Urine Appearance Urine pH Ur Specific [place] Urine Protein Urine Glucose (UA) Urine Ketones Urine Blood Urine Nitrite Ur Leukocyte Esterase Urine WBC (Auto) Urine RBC (Auto) 10/26/18 10/26/18 10/26/18 14:30 14:30 18:36 WBC RBC Hgb Hct MCV MCH MCHC RDW Plt Count Seg Neutrophils % Lymphocytes % Monocytes % Eosinophils % Basophils % Absolute Neutrophils Absolute Lymphocytes Absolute Monocytes Absolute Eosinophils Absolute Basophils Carbonic Acid HCO3/H2CO3 Ratio ABG pH ABG pCO2 ABG pO2 ABG HCO3 ABG O2 Saturation ABG Base Excess VBG pH 7.42 VBG pCO2 36.1 VBG HCO3 23.0 VBG Base Excess -0.9 FiO2 Sodium Potassium Chloride Carbon Dioxide Anion Gap BUN Creatinine Est GFR ( Amer) Est GFR (Non-Af Amer) Glucose Serum Osmolality Lactic Acid Calcium Phosphorus Magnesium Total Bilirubin AST ALT Alkaline Phosphatase Total Protein Albumin Lipase TSH 1.46 Urine Color YELLOW Urine Appearance CLEAR Urine pH 6.0 Ur Specific [place] 1.018 Urine Protein 30 H Urine Glucose (UA) >=500 H Urine Ketones 20 H Urine Blood MODERATE H Urine Nitrite NEGATIVE Ur Leukocyte Esterase NEGATIVE Urine WBC (Auto) 1 Urine RBC (Auto) 0 10/26/18 10/26/18 10/27/18 20:07 20:07 02:33 WBC 8.6 RBC 4.47 Hgb 15.1 Hct 41.7 MCV 93 MCH 33.8 H MCHC 36.2 H RDW 12.1 Plt Count 113 L Seg Neutrophils % 80.8 H Lymphocytes % 9.5 L Monocytes % 9.5 Eosinophils % 0.0 Basophils % 0.2 Absolute Neutrophils 6.9 Absolute Lymphocytes 0.8 Absolute Monocytes 0.8 Absolute Eosinophils 0.0 Absolute Basophils 0.0 Carbonic Acid HCO3/H2CO3 Ratio ABG pH ABG pCO2 ABG pO2 ABG HCO3 ABG O2 Saturation ABG Base Excess VBG pH VBG pCO2 VBG HCO3 VBG Base Excess FiO2 Sodium 118.3 L* Potassium 3.7 Chloride 84 L Carbon Dioxide 19 L Anion Gap 15 BUN 8 Creatinine 0.50 L Est GFR ( Amer) > 60 Est GFR (Non-Af Amer) > 60 Glucose 129 H Serum Osmolality Lactic Acid Calcium 8.5 Phosphorus 3.2 Magnesium 2.2 Total Bilirubin AST ALT Alkaline Phosphatase Total Protein Albumin Lipase 161.1 TSH Urine Color Urine Appearance Urine pH Ur Specific [place] Urine Protein Urine Glucose (UA) Urine Ketones Urine Blood Urine Nitrite Ur Leukocyte Esterase Urine WBC (Auto) Urine RBC (Auto) 10/27/18 10/27/18 10/27/18 02:33 06:25 10:19 WBC RBC Hgb Hct MCV MCH MCHC RDW Plt Count Seg Neutrophils % Lymphocytes % Monocytes % Eosinophils % Basophils % Absolute Neutrophils Absolute Lymphocytes Absolute Monocytes Absolute Eosinophils Absolute Basophils Carbonic Acid 0.85 L HCO3/H2CO3 Ratio 26:1 ABG pH 7.52 H ABG pCO2 28.2 L ABG pO2 78.6 L ABG HCO3 22.6 ABG O2 Saturation 96.8 ABG Base Excess 1.1 VBG pH VBG pCO2 VBG HCO3 VBG Base Excess FiO2 28% Sodium 120.9 L* 121.9 L Potassium 3.5 L 3.6 Chloride 85 L 87 L Carbon Dioxide 23 22 Anion Gap 13 13 BUN 8 9 Creatinine 0.52 0.53 Est GFR ( Amer) > 60 > 60 Est GFR (Non-Af Amer) > 60 > 60 Glucose 122 H 130 H Serum Osmolality Lactic Acid Calcium 8.3 L 8.4 Phosphorus Magnesium Total Bilirubin 1.3 AST 122 H ALT 47 Alkaline Phosphatase 96 Total Protein 6.3 Albumin 3.6 Lipase TSH Urine Color Urine Appearance Urine pH Ur Specific [place] Urine Protein Urine Glucose (UA) Urine Ketones Urine Blood Urine Nitrite Ur Leukocyte Esterase Urine WBC (Auto) Urine RBC (Auto) 10/27/18 10:19 WBC RBC Hgb Hct MCV MCH MCHC RDW Plt Count Seg Neutrophils % Lymphocytes % Monocytes % Eosinophils % Basophils % Absolute Neutrophils Absolute Lymphocytes Absolute Monocytes Absolute Eosinophils Absolute Basophils Carbonic Acid HCO3/H2CO3 Ratio ABG pH ABG pCO2 ABG pO2 ABG HCO3 ABG O2 Saturation ABG Base Excess VBG pH VBG pCO2 VBG HCO3 VBG Base Excess FiO2 Sodium Potassium Chloride Carbon Dioxide Anion Gap BUN Creatinine Est GFR ( Amer) Est GFR (Non-Af Amer) Glucose Serum Osmolality 249 L Lactic Acid Calcium Phosphorus Magnesium Total Bilirubin AST ALT Alkaline Phosphatase Total Protein Albumin Lipase TSH Urine Color Urine Appearance Urine pH Ur Specific [place] Urine Protein Urine Glucose (UA) Urine Ketones Urine Blood Urine Nitrite Ur Leukocyte Esterase Urine WBC (Auto) Urine RBC (Auto) 10/26/18 10/26/18 10/27/18 14:30 14:30 02:33 Creatine Kinase 2378 H 4848 H CK-MB (CK-2) 12.40 H Troponin I 0.053 10/27/18 02:33 Creatine Kinase CK-MB (CK-2) 11.50 H Troponin I 0.046 Impressions: Chest X-Ray 10/26/18 14:13 IMPRESSION: NO ACUTE RADIOGRAPHIC FINDING IN THE CHEST. Facial Bones CT 10/26/18 14:14 IMPRESSION: 1. No acute intracranial pathology. 2. No displaced fractures of the facial bones. 3. Soft tissue laceration and hematoma of the forehead. EVIDENCE OF ACUTE STROKE: NO. Head CT 10/26/18 14:14 IMPRESSION: 1. No acute intracranial pathology. 2. No displaced fractures of the facial bones. 3. Soft tissue laceration and hematoma of the forehead. EVIDENCE OF ACUTE STROKE: NO. Cervical Spine CT 10/26/18 14:15 IMPRESSION: No fracture or static subluxation of the cervical spine. Chest/Abdomen CTA 10/26/18 16:08 IMPRESSION: NORMAL CTA OF THE CHEST. NO PULMONARY EMBOLI. Assessment and Plan - Diagnosis (1) Hyponatremia Is this a current diagnosis for this admission?: Yes Plan: Hypotonic hyponatremia. Serum osmolarity ordered and came back very low. Possible beer potomania but will send for urine sodium and urine osm as well. He was placed on fluid restriction on admission and this appears to have gradually improve his Sodium level. He does have elevated CK related to his fall witha stable creatinine. Will repeat CK later today and will continue fluid restriction for now. (2) Alcohol withdrawal delirium Is this a current diagnosis for this admission?: Yes Plan: Increase Ativan to 2 mg q4h prn. Continue thiamine and folate. - Time Time Spent with patient: 25-34 minutes
[2018-10-27 15:59] LABS: ANION GAP 11 (5-19); BLOOD UREA NITROGEN 9 mg/dL (7-20); CALCIUM 8.3 mg/dL (8.4-10.2); CARBON DIOXIDE 22 mmol/L (22-30); CHLORIDE 88 mmol/L (98-107); GLUCOSE 115 mg/dL (75-110); POTASSIUM 3.3 mmol/L (3.6-5.0); SODIUM 121.4 mmol/L (137-145)
[2018-10-27] MEDS: AZITHROMYCIN 500 MG in DEXTROSE 5%-WATER 250 ML IV SCH (21:57)
[2018-10-28] MEDS: IPRATROPIUM/ALBUTEROL 0.5-2.5 MG/3 ML AMPUL NEB SCH ×3 (00:26→16:11)
[2018-10-28] MEDS: HYDRALAZINE HCL INJ/PF 20 MG/1 ML SDV IV PRN (01:20)
[2018-10-28 01:40] LABS: ANION GAP 13 (5-19); BLOOD UREA NITROGEN 10 mg/dL (7-20); CALCIUM 8.5 mg/dL (8.4-10.2); CARBON DIOXIDE 22 mmol/L (22-30); CHLORIDE 87 mmol/L (98-107); GLUCOSE 138 mg/dL (75-110); POTASSIUM 3.1 mmol/L (3.6-5.0); SODIUM 121.7 mmol/L (137-145)
[2018-10-28] MEDS: LORAZEPAM INJ 2 MG/1 ML VIAL IV SCH ×6 (02:13→22:24)
[2018-10-28] MEDS: HEPARIN SOD (PORCINE) 5,000 UNIT/ML 1 ML SYRINGE SUBCUT SCH ×3 (06:39→22:25)
[2018-10-28] MEDS: INSULIN REG, HUMAN 100 UNIT/ML 3 ML VIAL (PYX) SUBCUT SCH ×4 (11:01→22:33)
[2018-10-28] MEDS: THIAMINE HCL 100 MG TABLET PO SCH (11:02)
[2018-10-28] MEDS: DOCUSATE SODIUM 100 MG CAPSULE PO SCH ×2 (11:02→17:36)
[2018-10-28] MEDS: FOLIC ACID 1 MG TABLET PO SCH (11:02)
[2018-10-28] MEDS ORDERED: POTASSIUM CHLORIDE 10 MEQ CAPSULE.ER PO ONE (14:53)
--- NOTE | 2018-10-28 14:55 | PDOC PROGRESS REPORT ---
Subjective Progress Note for:: 10/28/18 Subjective:: This is a 67 year old male with a past medical history of chronic heavy smoking and alcohol dependence who presents with approximately 1 week of generalized weakness and at least 2 falls to the ground with inability return to standing. During each event he states he simply felt weak and his legs gave out. He was found to have profound hyponatremia and was also manifesting sings of alcohol withdrawal. 10/27: He did get an Ativan this morning for his agitation. He is able to tell me his name but is disoriented to place and time. Family says he drinks at least 12 bottles of beer/day. His grandson says his last drink was last Wednesday night. 10/28: Patient is arousable but remain confused. He continues to require Ativan. He is currently protecting his airway at this time. Reason For Visit: HYPONATREMIA, ETOH DEP, FALL Physical Exam Vital Signs: Temp Pulse Resp BP Pulse Ox 98.2 F 93 19 136/72 H 95 10/28/18 08:28 10/28/18 08:28 10/28/18 08:28 10/28/18 08:28 10/28/18 08:28 Intake & Output 10/27/18 10/28/18 10/29/18 06:59 06:59 06:59 Intake Total 1684.2 250 Output Total 1100 Balance 584.2 250 Weight 197 lb 12.074 oz 191 lb 9.307 oz General appearance: PRESENT: no acute distress, well-developed, well-nourished Head exam: PRESENT: atraumatic, normocephalic Eye exam: PRESENT: conjunctiva pink, EOMI, PERRLA. ABSENT: scleral icterus Ear exam: PRESENT: normal external ear exam Mouth exam: PRESENT: moist, tongue midline Neck exam: ABSENT: carotid bruit, JVD, lymphadenopathy, thyromegaly Respiratory exam: PRESENT: clear to auscultation martniez. ABSENT: rales, rhonchi, wheezes Cardiovascular exam: PRESENT: RRR. ABSENT: diastolic murmur, rubs, systolic murmur Pulses: PRESENT: normal dorsalis pedis pul GI/Abdominal exam: PRESENT: normal bowel sounds, soft. ABSENT: distended, guarding, mass, organolmegaly, rebound, tenderness Rectal exam: PRESENT: deferred Extremities exam: PRESENT: full ROM. ABSENT: calf tenderness, clubbing, pedal edema Neurological exam: PRESENT: altered, CN II-XII grossly intact. ABSENT: motor sensory deficit Results Laboratory Results: 10/27/18 02:33 10/28/18 01:04 10/27/18 10/28/18 10/28/18 14:52 00:25 01:04 Sodium 121.4 L 121.7 L Potassium 3.3 L 3.1 L Chloride 88 L 87 L Carbon Dioxide 22 22 Anion Gap 11 13 BUN 9 10 Creatinine 0.52 0.47 L Est GFR ( Amer) > 60 > 60 Est GFR (Non-Af Amer) > 60 > 60 Glucose 115 H 138 H Calcium 8.3 L 8.5 Urine Osmolality 629 10/26/18 10/26/18 10/27/18 14:30 14:30 02:33 Creatine Kinase 2378 H 4848 H CK-MB (CK-2) 12.40 H Troponin I 0.053 10/27/18 10/27/18 02:33 14:52 Creatine Kinase 2275 H CK-MB (CK-2) 11.50 H Troponin I 0.046 Impressions: Chest X-Ray 10/26/18 14:13 IMPRESSION: NO ACUTE RADIOGRAPHIC FINDING IN THE CHEST. Facial Bones CT 10/26/18 14:14 IMPRESSION: 1. No acute intracranial pathology. 2. No displaced fractures of the facial bones. 3. Soft tissue laceration and hematoma of the forehead. EVIDENCE OF ACUTE STROKE: NO. Head CT 10/26/18 14:14 IMPRESSION: 1. No acute intracranial pathology. 2. No displaced fractures of the facial bones. 3. Soft tissue laceration and hematoma of the forehead. EVIDENCE OF ACUTE STROKE: NO. Cervical Spine CT 10/26/18 14:15 IMPRESSION: No fracture or static subluxation of the cervical spine. Chest/Abdomen CTA 10/26/18 16:08 IMPRESSION: NORMAL CTA OF THE CHEST. NO PULMONARY EMBOLI. Assessment and Plan - Diagnosis (1) Alcohol withdrawal delirium Is this a current diagnosis for this admission?: Yes Plan: Increase Ativan to 2 mg q4h prn. Continue thiamine and folate. 10/28: Continue CIWA. (2) Hyponatremia Is this a current diagnosis for this admission?: Yes Plan: Hypotonic hyponatremia. Serum osmolarity ordered and came back very low. Possible beer potomania but will send for urine sodium and urine osm as well. He was placed on fluid restriction on admission and this appears to have gradually improve his Sodium level. He does have elevated CK related to his fall with a stable creatinine. Will repeat CK later today and will continue fluid restriction for now. 10/28: Sodium has slightly improved with fluid restriction. Urine sodium came back low (3) Hypokalemia Is this a current diagnosis for this admission?: Yes Plan: Potassium at 3.1. Will replace with 40 PO and 40 IV. Repeat BMP after replacement.
[2018-10-28] MEDS: POTASSI CL 20 MEQ/50 ML RIDER 20 MEQ/50 ML RTUPB IV SCH ×2 (17:48→20:32)
[2018-10-28 21:53] LABS: ANION GAP 13 (5-19); BLOOD UREA NITROGEN 10 mg/dL (7-20); CALCIUM 8.3 mg/dL (8.4-10.2); CARBON DIOXIDE 23 mmol/L (22-30); CHLORIDE 87 mmol/L (98-107); GLUCOSE 112 mg/dL (75-110); POTASSIUM 3.5 mmol/L (3.6-5.0); SODIUM 122.6 mmol/L (137-145)
[2018-10-28] MEDS ORDERED: POTASSIUM CHLORIDE 20 MEQ/50 ML RTU IV ONE (22:00)
[2018-10-28] MEDS: AZITHROMYCIN 500 MG in DEXTROSE 5%-WATER 250 ML IV SCH (22:22)
[2018-10-29] MEDS: IPRATROPIUM/ALBUTEROL 0.5-2.5 MG/3 ML AMPUL NEB SCH ×4 (00:08→23:59)
[2018-10-29] MEDS: LORAZEPAM INJ 2 MG/1 ML VIAL IV SCH ×5 (02:14→20:18)
[2018-10-29 05:06] LABS: ANION GAP 10 (5-19); BLOOD UREA NITROGEN 8 mg/dL (7-20); CALCIUM 8.3 mg/dL (8.4-10.2); CARBON DIOXIDE 21 mmol/L (22-30); CHLORIDE 92 mmol/L (98-107); GLUCOSE 101 mg/dL (75-110); POTASSIUM 3.2 mmol/L (3.6-5.0); SODIUM 122.7 mmol/L (137-145)
[2018-10-29] MEDS: HEPARIN SOD (PORCINE) 5,000 UNIT/ML 1 ML SYRINGE SUBCUT SCH ×3 (06:28→21:46)
[2018-10-29] MEDS ORDERED: POTASSIUM CHLORIDE 10 MEQ CAPSULE.ER PO ONE (09:00)
[2018-10-29] MEDS ORDERED: POTASSIUM CHLORIDE 20 MEQ/15 ML UDCUP PO ONE ×2 (09:15→10:00)
[2018-10-29] MEDS: INSULIN REG, HUMAN 100 UNIT/ML 3 ML VIAL (PYX) SUBCUT SCH ×2 (09:20→12:10)
[2018-10-29] MEDS: DOCUSATE SODIUM 100 MG CAPSULE PO SCH ×2 (09:21→17:00)
[2018-10-29] MEDS: FOLIC ACID 1 MG TABLET PO SCH (09:36)
[2018-10-29] MEDS: THIAMINE HCL 100 MG TABLET PO SCH (09:36)
[2018-10-29] MEDS: FLUTICASONE NASAL SPRAY 50 MCG/SPRY 120 SPRAY/16 GM NASL SCH ×2 (11:23→21:45)
[2018-10-29] MEDS ORDERED: LABETALOL HCL INJ 20 MG/4 ML DISP.SYRIN IV PRN (12:45)
[2018-10-29] MEDS: HYDRALAZINE HCL INJ/PF 20 MG/1 ML SDV IV PRN ×2 (12:59→18:57)
[2018-10-29 13:10] LABS: ANION GAP 11 (5-19); BLOOD UREA NITROGEN 9 mg/dL (7-20); CALCIUM 8.8 mg/dL (8.4-10.2); CARBON DIOXIDE 20 mmol/L (22-30); CHLORIDE 93 mmol/L (98-107); GLUCOSE 130 mg/dL (75-110); POTASSIUM 4.1 mmol/L (3.6-5.0); SODIUM 124.1 mmol/L (137-145)
[2018-10-29] MEDS ORDERED: HYDRALAZINE HCL INJ/PF 20 MG/1 ML SDV IV PRN (14:09)
[2018-10-29] MEDS ORDERED: HYDRALAZINE HCL INJ/PF 20 MG/1 ML SDV IV ONE (14:15)
--- NOTE | 2018-10-29 14:55 | PDOC PROGRESS REPORT ---
Subjective Progress Note for:: 10/29/18 Subjective:: This is a 67 year old male with a past medical history of chronic heavy smoking and alcohol dependence who presents with approximately 1 week of generalized weakness and at least 2 falls to the ground with inability return to standing. During each event he states he simply felt weak and his legs gave out. He was found to have profound hyponatremia and was also manifesting sings of alcohol withdrawal. 10/27: He did get an Ativan this morning for his agitation. He is able to tell me his name but is disoriented to place and time. Family says he drinks at least 12 bottles of beer/day. His grandson says his last drink was last Wednesday night. 10/28: Patient is arousable but remain confused. He continues to require Ativan. He is currently protecting his airway at this time. 10/29: No acute event overnight. Patient appears much more awake and conversant today. He is able to tell me his name and the month/year but thinks he is in an office. Denies chest pain or SOB. Reason For Visit: HYPONATREMIA, ETOH DEP, FALL Physical Exam Vital Signs: Temp Pulse Resp BP Pulse Ox 98.1 F 99 19 188/93 H 92 10/29/18 11:36 10/29/18 11:36 10/29/18 11:36 10/29/18 11:36 10/29/18 11:36 Intake & Output 10/28/18 10/29/18 10/30/18 06:59 06:59 06:59 Intake Total 250 1410 Balance 250 1410 Weight 191 lb 9.307 oz 219 lb 2.232 oz General appearance: PRESENT: no acute distress, well-developed, well-nourished Head exam: PRESENT: atraumatic, normocephalic Eye exam: PRESENT: conjunctiva pink, EOMI, PERRLA. ABSENT: scleral icterus Ear exam: PRESENT: normal external ear exam Mouth exam: PRESENT: moist, tongue midline Neck exam: ABSENT: carotid bruit, JVD, lymphadenopathy, thyromegaly Respiratory exam: PRESENT: clear to auscultation martinez. ABSENT: rales, rhonchi, wheezes Cardiovascular exam: PRESENT: RRR. ABSENT: diastolic murmur, rubs, systolic murmur Pulses: PRESENT: normal dorsalis pedis pul GI/Abdominal exam: PRESENT: normal bowel sounds, soft. ABSENT: distended, guarding, mass, organolmegaly, rebound, tenderness Rectal exam: PRESENT: deferred Extremities exam: PRESENT: full ROM. ABSENT: calf tenderness, clubbing, pedal edema Neurological exam: PRESENT: alert, awake, oriented to person, oriented to time, CN II-XII grossly intact. ABSENT: oriented to place, motor sensory deficit Results Laboratory Results: 10/27/18 02:33 10/29/18 12:35 10/28/18 10/29/18 10/29/18 21:19 04:28 04:28 Sodium 122.6 L 122.7 L Potassium 3.5 L 3.2 L Chloride 87 L 92 L Carbon Dioxide 23 21 L Anion Gap 13 10 BUN 10 8 Creatinine 0.53 0.46 L Est GFR ( Amer) > 60 > 60 Est GFR (Non-Af Amer) > 60 > 60 Glucose 112 H 101 Calcium 8.3 L 8.3 L Magnesium 2.3 10/29/18 12:35 Sodium 124.1 L Potassium 4.1 Chloride 93 L Carbon Dioxide 20 L Anion Gap 11 BUN 9 Creatinine 0.56 Est GFR ( Amer) > 60 Est GFR (Non-Af Amer) > 60 Glucose 130 H Calcium 8.8 Magnesium 10/26/18 18:36 Clean Catch Midstream Urine Culture - Final NO GROWTH 2 DAYS 10/26/18 10/26/18 10/27/18 14:30 14:30 02:33 Creatine Kinase 2378 H 4848 H CK-MB (CK-2) 12.40 H Troponin I 0.053 10/27/18 10/27/18 02:33 14:52 Creatine Kinase 2275 H CK-MB (CK-2) 11.50 H Troponin I 0.046 Impressions: Chest X-Ray 10/26/18 14:13 IMPRESSION: NO ACUTE RADIOGRAPHIC FINDING IN THE CHEST. Facial Bones CT 10/26/18 14:14 IMPRESSION: 1. No acute intracranial pathology. 2. No displaced fractures of the facial bones. 3. Soft tissue laceration and hematoma of the forehead. EVIDENCE OF ACUTE STROKE: NO. Head CT 10/26/18 14:14 IMPRESSION: 1. No acute intracranial pathology. 2. No displaced fractures of the facial bones. 3. Soft tissue laceration and hematoma of the forehead. EVIDENCE OF ACUTE STROKE: NO. Cervical Spine CT 10/26/18 14:15 IMPRESSION: No fracture or static subluxation of the cervical spine. Chest/Abdomen CTA 10/26/18 16:08 IMPRESSION: NORMAL CTA OF THE CHEST. NO PULMONARY EMBOLI. Assessment and Plan - Diagnosis (1) Alcohol withdrawal delirium Is this a current diagnosis for this admission?: Yes Plan: Increase Ativan to 2 mg q4h prn. Continue thiamine and folate. 10/28: Continue CIWA. 10/29: Improving. He is still confused to place but is more awake and conversant today. (2) Hyponatremia Is this a current diagnosis for this admission?: Yes Plan: Hypotonic hyponatremia. Serum osmolarity ordered and came back very low. Possible beer potomania but will send for urine sodium and urine osm as well. He was placed on fluid restriction on admission and this appears to have gradually improve his Sodium level. He does have elevated CK related to his fall with a stable creatinine. Will repeat CK later today and will continue fluid restriction for now. 10/28: Sodium has slightly improved with fluid restriction. (3) Hypokalemia Is this a current diagnosis for this admission?: Yes Plan: 10/29: Potassium came back low again this morning donavan after replacement yesterday. Will replace with 60 meqs PO. Will also check Mg level. (4) Hypertension Is this a current diagnosis for this admission?: Yes Plan: Alcohol withdrawal likely contributing on top of chronic HTN. Will add low dose lopressor. - Time Time Spent with patient: 15-24 minutes
[2018-10-29] MEDS: METOPROLOL TARTRATE 25 MG TABLET PO SCH ×2 (16:51→21:44)
--- NOTE | 2018-10-29 18:01 | RADIOLOGY REPORT (SQ) ---
EXAM DESCRIPTION: MRI HEAD WITHOUT COMPLETED DATE/TIME: 10/29/2018 5:52 pm REASON FOR STUDY: ataxia COMPARISON: CT dated 10/26/2017. TECHNIQUE: Multiplanar imaging includes non-contrasted T1, T2, FLAIR, and diffusion with ADC map seq uences. Images stored on PACS. LIMITATIONS: Motion artifact. FINDINGS: ANATOMY: No anomalies. Normal vascular flow voids. Pituitary fossa normal. CSF SPACES: Atrophy induced prominence of ventricles and CSF spaces. CEREBRUM: High signal intensity lesions scattered throughout the white matter on FLAIR imaging with d istribution suggesting micro-vascular ischemic changes. No evidence of hemorrhage, mass, or extraaxi al fluid collection. POSTERIOR FOSSA: No signal alteration. No hemorrhage. No edema, masses or mass effect. Internal nancy tory canals, cerebello-pontine angles, mastoids normal. DIFFUSION IMAGING: Negative for acute or sub-acute infarction. ORBITS: No masses. Globes normal. PARANASAL SINUSES: Mild mucous membrane thickening and fluid in the maxillary and ethmoid sinuses. OTHER: No other significant finding. IMPRESSION: ATROPHY AND CHRONIC MICRO-VASCULAR ISCHEMIC CHANGES. SINUS DISEASE. NO ACUTE FINDINGS. EVIDENCE OF ACUTE STROKE: NO. TECHNICAL DOCUMENTATION: JOB ID: [id number] CS[employer]- All Rights Reserved Reading location - IP/workstation name: [email or web address]
[2018-10-29] MEDS: ACETAMINOPHEN 325 MG TABLET PO PRN (20:24)
[2018-10-29] MEDS: AZITHROMYCIN 500 MG in DEXTROSE 5%-WATER 250 ML IV SCH (21:46)
[2018-10-30] MEDS: LORAZEPAM INJ 2 MG/1 ML VIAL IV SCH ×5 (00:50→18:11)
[2018-10-30] MEDS: HEPARIN SOD (PORCINE) 5,000 UNIT/ML 1 ML SYRINGE SUBCUT SCH ×3 (06:04→21:23)
[2018-10-30] MEDS: IPRATROPIUM/ALBUTEROL 0.5-2.5 MG/3 ML AMPUL NEB SCH ×2 (08:25→16:29)
[2018-10-30] MEDS ORDERED: LORAZEPAM INJ 2 MG/1 ML VIAL IV ONE (09:00)
[2018-10-30] MEDS: FOLIC ACID 1 MG TABLET PO SCH (10:23)
[2018-10-30] MEDS: METOPROLOL TARTRATE 25 MG TABLET PO SCH ×2 (10:23→21:22)
[2018-10-30] MEDS: THIAMINE HCL 100 MG TABLET PO SCH (10:23)
[2018-10-30] MEDS: DOCUSATE SODIUM 100 MG CAPSULE PO SCH ×2 (10:24→18:11)
[2018-10-30] MEDS: FLUTICASONE NASAL SPRAY 50 MCG/SPRY 120 SPRAY/16 GM NASL SCH ×2 (10:24→21:18)
[2018-10-30 13:03] LABS: ANION GAP 11 (5-19); BLOOD UREA NITROGEN 11 mg/dL (7-20); CARBON DIOXIDE 20 mmol/L (22-30); CHLORIDE 94 mmol/L (98-107); GLUCOSE 128 mg/dL (75-110); POTASSIUM 3.7 mmol/L (3.6-5.0); SODIUM 125.2 mmol/L (137-145)
--- NOTE | 2018-10-30 14:50 | PDOC PROGRESS REPORT ---
Subjective Progress Note for:: 10/30/18 Subjective:: This is a 67 year old male with a past medical history of chronic heavy smoking and alcohol dependence who presents with approximately 1 week of generalized weakness and at least 2 falls to the ground with inability return to standing. During each event he states he simply felt weak and his legs gave out. He was found to have profound hyponatremia and was also manifesting sings of alcohol withdrawal. 10/27: He did get an Ativan this morning for his agitation. He is able to tell me his name but is disoriented to place and time. Family says he drinks at least 12 bottles of beer/day. His grandson says his last drink was last Wednesday night. 10/28: Patient is arousable but remain confused. He continues to require Ativan. He is currently protecting his airway at this time. 10/29: Patient appears much more awake and conversant today. He is able to tell me his name and the month/year but thinks he is in an office. 10/30: No acute event overnight. He was given Ativan early this morning and was sleep. He is arousable and is oriented to person and time. Denies chest pain or SOB. Will reduce Ativan. Reason For Visit: HYPONATREMIA, ETOH DEP, FALL Physical Exam Vital Signs: Temp Pulse Resp BP Pulse Ox 97.6 F 87 19 158/78 H 95 10/30/18 12:06 10/30/18 12:06 10/30/18 12:06 10/30/18 12:06 10/30/18 12:06 Intake & Output 10/29/18 10/30/18 10/31/18 06:59 06:59 06:59 Intake Total 1410 944 75 Output Total 500 Balance 1410 444 75 Weight 219 lb 2.232 oz 215 lb 2.738 oz General appearance: PRESENT: no acute distress, well-developed, well-nourished Head exam: PRESENT: atraumatic, normocephalic Eye exam: PRESENT: conjunctiva pink, EOMI, PERRLA. ABSENT: scleral icterus Ear exam: PRESENT: normal external ear exam Mouth exam: PRESENT: moist, tongue midline Neck exam: ABSENT: carotid bruit, JVD, lymphadenopathy, thyromegaly Respiratory exam: PRESENT: clear to auscultation martinez. ABSENT: rales, rhonchi, wheezes Cardiovascular exam: PRESENT: RRR. ABSENT: diastolic murmur, rubs, systolic murmur Pulses: PRESENT: normal dorsalis pedis pul GI/Abdominal exam: PRESENT: normal bowel sounds, soft. ABSENT: distended, guarding, mass, organolmegaly, rebound, tenderness Rectal exam: PRESENT: deferred Neurological exam: PRESENT: oriented to person, oriented to time, CN II-XII grossly intact. ABSENT: oriented to place, motor sensory deficit Results Laboratory Results: 10/27/18 02:33 10/30/18 12:25 10/30/18 12:25 Sodium 125.2 L Potassium 3.7 Chloride 94 L Carbon Dioxide 20 L Anion Gap 11 BUN 11 Creatinine 0.48 L Est GFR ( Amer) > 60 Est GFR (Non-Af Amer) > 60 Glucose 128 H Calcium 9.0 10/26/18 10/26/18 10/27/18 14:30 14:30 02:33 Creatine Kinase 2378 H 4848 H CK-MB (CK-2) 12.40 H Troponin I 0.053 10/27/18 10/27/18 02:33 14:52 Creatine Kinase 2275 H CK-MB (CK-2) 11.50 H Troponin I 0.046 Impressions: Chest X-Ray 10/26/18 14:13 IMPRESSION: NO ACUTE RADIOGRAPHIC FINDING IN THE CHEST. Facial Bones CT 10/26/18 14:14 IMPRESSION: 1. No acute intracranial pathology. 2. No displaced fractures of the facial bones. 3. Soft tissue laceration and hematoma of the forehead. EVIDENCE OF ACUTE STROKE: NO. Head CT 10/26/18 14:14 IMPRESSION: 1. No acute intracranial pathology. 2. No displaced fractures of the facial bones. 3. Soft tissue laceration and hematoma of the forehead. EVIDENCE OF ACUTE STROKE: NO. Cervical Spine CT 10/26/18 14:15 IMPRESSION: No fracture or static subluxation of the cervical spine. Chest/Abdomen CTA 10/26/18 16:08 IMPRESSION: NORMAL CTA OF THE CHEST. NO PULMONARY EMBOLI. Head MRI 10/29/18 00:00 IMPRESSION: ATROPHY AND CHRONIC MICRO-VASCULAR ISCHEMIC CHANGES. SINUS DISEASE. NO ACUTE FINDINGS. EVIDENCE OF ACUTE STROKE: NO. Assessment and Plan - Diagnosis (1) Alcohol withdrawal delirium Is this a current diagnosis for this admission?: Yes Plan: Increase Ativan to 2 mg q4h prn. Continue thiamine and folate. 10/28: Continue CIWA. 10/29: He is still confused to place but is more awake and conversant today. 10/30: Improving. Will reduce Ativan. (2) Hyponatremia Is this a current diagnosis for this admission?: Yes Plan: Hypotonic hyponatremia. Serum osmolarity ordered and came back very low. Possible beer potomania but will send for urine sodium and urine osm as well. He was placed on fluid restriction on admission and this appears to have gradually improve his Sodium level. He does have elevated CK related to his fall with a stable creatinine. Will repeat CK later today and will continue fluid restriction for now. 10/28: Sodium has slightly improved with fluid restriction. 10/30: Sodium continue to gradually improve with fluid restriction. (3) Hypokalemia Is this a current diagnosis for this admission?: Yes Plan: 10/29: Potassium came back low again this morning donavan after replacement yesterday. Will replace with 60 meqs PO. Will also check Mg level. 10/30: Resolved. (4) Hypertension Is this a current diagnosis for this admission?: Yes Plan: Alcohol withdrawal likely contributing on top of chronic HTN. Will add low dose lopressor. 10/30: Increase Lopressor to 25 mg q12.
[2018-10-30] MEDS: AZITHROMYCIN 500 MG in DEXTROSE 5%-WATER 250 ML IV SCH (21:20)
[2018-10-31] MEDS: IPRATROPIUM/ALBUTEROL 0.5-2.5 MG/3 ML AMPUL NEB SCH ×3 (00:12→15:57)
[2018-10-31] MEDS: HYDRALAZINE HCL INJ/PF 20 MG/1 ML SDV IV PRN (04:00)
[2018-10-31] MEDS: HEPARIN SOD (PORCINE) 5,000 UNIT/ML 1 ML SYRINGE SUBCUT SCH ×3 (05:00→21:10)
[2018-10-31] MEDS: FOLIC ACID 1 MG TABLET PO SCH (09:02)
[2018-10-31] MEDS: METOPROLOL TARTRATE 25 MG TABLET PO SCH ×2 (09:02→21:10)
[2018-10-31] MEDS: THIAMINE HCL 100 MG TABLET PO SCH (09:02)
[2018-10-31] MEDS: FLUTICASONE NASAL SPRAY 50 MCG/SPRY 120 SPRAY/16 GM NASL SCH ×2 (09:03→21:10)
[2018-10-31] MEDS: DOCUSATE SODIUM 100 MG CAPSULE PO SCH ×2 (09:03→17:17)
[2018-10-31] MEDS: LORAZEPAM INJ 2 MG/1 ML VIAL IV SCH (10:52)
[2018-10-31] MEDS: INSULIN REG, HUMAN 100 UNIT/ML 3 ML VIAL (PYX) SUBCUT SCH (10:54)
[2018-10-31 13:37] LABS: ANION GAP 12 (5-19); BLOOD UREA NITROGEN 10 mg/dL (7-20); CALCIUM 8.8 mg/dL (8.4-10.2); CARBON DIOXIDE 21 mmol/L (22-30); CHLORIDE 92 mmol/L (98-107); GLUCOSE 149 mg/dL (75-110); POTASSIUM 3.5 mmol/L (3.6-5.0); SODIUM 124.7 mmol/L (137-145)
--- NOTE | 2018-10-31 14:34 | PDOC PROGRESS REPORT ---
Subjective Progress Note for:: 10/31/18 Subjective:: This is a 67 year old male with a past medical history of chronic heavy smoking and alcohol dependence who presents with approximately 1 week of generalized weakness and at least 2 falls to the ground with inability return to standing. During each event he states he simply felt weak and his legs gave out. He was found to have profound hyponatremia and was also manifesting sings of alcohol withdrawal. 10/27: He did get an Ativan this morning for his agitation. He is able to tell me his name but is disoriented to place and time. Family says he drinks at least 12 bottles of beer/day. His grandson says his last drink was last Wednesday night. 10/28: Patient is arousable but remain confused. He continues to require Ativan. He is currently protecting his airway at this time. 10/29: Patient appears much more awake and conversant today. He is able to tell me his name and the month/year but thinks he is in an office. 10/30: He was given Ativan early this morning and was sleep. He is arousable and is oriented to person and time. Denies chest pain or SOB. Will reduce Ativan. 10/31: No acute event overnight. He is more awake and coherent today but still a little confused and was not able to recognize her sister on the bedside. Sodium continues to improve. Reason For Visit: HYPONATREMIA, ETOH DEP, FALL Physical Exam Vital Signs: Temp Pulse Resp BP Pulse Ox 97.8 F 97 26 H 137/74 H 93 10/31/18 08:22 10/31/18 08:33 10/31/18 08:33 10/31/18 08:22 10/31/18 08:33 Intake & Output 10/30/18 10/31/18 11/01/18 06:59 06:59 06:59 Intake Total 944 547 0 Output Total 500 400 Balance 444 147 0 Weight 215 lb 2.738 oz 214 lb 4.629 oz General appearance: PRESENT: no acute distress, well-developed, well-nourished Head exam: PRESENT: atraumatic, normocephalic Eye exam: PRESENT: conjunctiva pink, EOMI, PERRLA. ABSENT: scleral icterus Ear exam: PRESENT: normal external ear exam Mouth exam: PRESENT: moist, tongue midline Neck exam: ABSENT: carotid bruit, JVD, lymphadenopathy, thyromegaly Respiratory exam: PRESENT: clear to auscultation martinez. ABSENT: rales, rhonchi, wheezes Cardiovascular exam: PRESENT: RRR. ABSENT: diastolic murmur, rubs, systolic murmur Pulses: PRESENT: normal dorsalis pedis pul GI/Abdominal exam: PRESENT: normal bowel sounds, soft. ABSENT: distended, guarding, mass, organolmegaly, rebound, tenderness Rectal exam: PRESENT: deferred Neurological exam: PRESENT: alert, awake, oriented to person, oriented to s ituation, CN II-XII grossly intact. ABSENT: oriented to time, motor sensory deficit Results Laboratory Results: 10/27/18 02:33 10/30/18 10/31/18 12:25 09:47 Sodium 125.2 L Cancelled Potassium 3.7 Cancelled Chloride 94 L Cancelled Carbon Dioxide 20 L Cancelled Anion Gap 11 Cancelled BUN 11 Cancelled Creatinine 0.48 L Cancelled Est GFR ( Amer) > 60 Cancelled Est GFR (Non-Af Amer) > 60 Cancelled Glucose 128 H Cancelled Calcium 9.0 Cancelled 10/26/18 10/26/18 10/27/18 14:30 14:30 02:33 Creatine Kinase 2378 H 4848 H CK-MB (CK-2) 12.40 H Troponin I 0.053 10/27/18 10/27/18 02:33 14:52 Creatine Kinase 2275 H CK-MB (CK-2) 11.50 H Troponin I 0.046 Impressions: Chest X-Ray 10/26/18 14:13 IMPRESSION: NO ACUTE RADIOGRAPHIC FINDING IN THE CHEST. Facial Bones CT 10/26/18 14:14 IMPRESSION: 1. No acute intracranial pathology. 2. No displaced fractures of the facial bones. 3. Soft tissue laceration and hematoma of the forehead. EVIDENCE OF ACUTE STROKE: NO. Head CT 10/26/18 14:14 IMPRESSION: 1. No acute intracranial pathology. 2. No displaced fractures of the facial bones. 3. Soft tissue laceration and hematoma of the forehead. EVIDENCE OF ACUTE STROKE: NO. Cervical Spine CT 10/26/18 14:15 IMPRESSION: No fracture or static subluxation of the cervical spine. Chest/Abdomen CTA 10/26/18 16:08 IMPRESSION: NORMAL CTA OF THE CHEST. NO PULMONARY EMBOLI. Head MRI 10/29/18 00:00 IMPRESSION: ATROPHY AND CHRONIC MICRO-VASCULAR ISCHEMIC CHANGES. SINUS DISEASE. NO ACUTE FINDINGS. EVIDENCE OF ACUTE STROKE: NO. Assessment and Plan - Diagnosis (1) Alcohol withdrawal delirium Is this a current diagnosis for this admission?: Yes Plan: Increase Ativan to 2 mg q4h prn. Continue thiamine and folate. 10/28: Continue CIWA. 10/29: He is still confused to place but is more awake and conversant today. 10/30: Improving. Will reduce Ativan. 10/29: Resolving. Discontinue Ativan as patient appears to be almost over the withdrawal period. He has some confusion which is improving but has not been agitated and is less tremulous. (2) Hyponatremia Is this a current diagnosis for this admission?: Yes Plan: Hypotonic hyponatremia. Serum osmolarity ordered and came back very low. Possible beer potomania but will send for urine sodium and urine osm as well. He was placed on fluid restriction on admission and this appears to have gradually improve his Sodium level. He does have elevated CK related to his fall with a stable creatinine. Will repeat CK later today and will continue fluid restriction for now. 10/28: Sodium has slightly improved with fluid restriction. 10/30: Sodium continue to gradually improve with fluid restriction. 10/31: Sodium still low but continues to trend up. (3) Hypokalemia Is this a current diagnosis for this admission?: Yes Plan: 10/29: Potassium came back low again this morning donavan after replacement yesterday. Will replace with 60 meqs PO. Will also check Mg level. 10/30: Resolved. (4) Hypertension Is this a current diagnosis for this admission?: Yes Plan: Alcohol withdrawal likely contributing on top of chronic HTN. Will add low dose lopressor. 10/30: Increase Lopressor to 25 mg q12. 10/31: Blood pressures in the 140/80s. Continue Lopressor. - Time Time Spent with patient: 15-24 minutes
[2018-10-31] MEDS: AZITHROMYCIN 500 MG in DEXTROSE 5%-WATER 250 ML IV SCH (21:10)
[2018-11-01] MEDS: IPRATROPIUM/ALBUTEROL 0.5-2.5 MG/3 ML AMPUL NEB SCH ×4 (00:09→23:44)
[2018-11-01] MEDS: HEPARIN SOD (PORCINE) 5,000 UNIT/ML 1 ML SYRINGE SUBCUT SCH ×3 (05:16→21:48)
[2018-11-01] MEDS: ACETAMINOPHEN 325 MG TABLET PO PRN (09:08)
[2018-11-01] MEDS: METOPROLOL TARTRATE 25 MG TABLET PO SCH ×2 (09:08→21:49)
[2018-11-01] MEDS: DOCUSATE SODIUM 100 MG CAPSULE PO SCH ×2 (09:09→17:21)
[2018-11-01] MEDS: FLUTICASONE NASAL SPRAY 50 MCG/SPRY 120 SPRAY/16 GM NASL SCH ×2 (09:09→21:50)
[2018-11-01] MEDS: FOLIC ACID 1 MG TABLET PO SCH (09:09)
[2018-11-01] MEDS: THIAMINE HCL 100 MG TABLET PO SCH (09:09)
[2018-11-01] MEDS: AZITHROMYCIN 500 MG in DEXTROSE 5%-WATER 250 ML IV SCH (21:50)
--- NOTE | 2018-11-01 22:01 | PDOC PROGRESS REPORT ---
Subjective Progress Note for:: 11/01/18 Subjective:: This is a 67 year old male with a past medical history of chronic heavy smoking and alcohol dependence who presents with approximately 1 week of generalized weakness and at least 2 falls to the ground with inability return to standing. During each event he states he simply felt weak and his legs gave out. He was found to have profound hyponatremia and was also manifesting signs of alcohol withdrawal. The patient was seen on rounds. He is resting in bed. The patient states he would like to ambulate with a walker. He is amendable to going to acute rehab to continue PT/OT treatment. The patient endorses diarrhea, states he has it everyday. No other patient complaints today. Discharge planning aware of patient's decision, arranging for placement. Reason For Visit: HYPONATREMIA, ETOH DEP, FALL Physical Exam Vital Signs: Temp Pulse Resp BP Pulse Ox 98.3 F 91 24 H 164/69 H 94 11/01/18 20:26 11/01/18 20:26 11/01/18 20:26 11/01/18 20:26 11/01/18 20:26 Intake & Output 10/31/18 11/01/18 11/02/18 06:59 06:59 06:59 Intake Total 547 472 923 Output Total 400 500 Balance 147 472 423 Weight 97.2 kg 102.8 kg Skin exam: PRESENT: other - bruising to face, different stages of healing Results Laboratory Results: 10/27/18 02:33 10/31/18 12:45 10/26/18 10/26/18 10/27/18 14:30 14:30 02:33 Creatine Kinase 2378 H 4848 H CK-MB (CK-2) 12.40 H Troponin I 0.053 10/27/18 10/27/18 02:33 14:52 Creatine Kinase 2275 H CK-MB (CK-2) 11.50 H Troponin I 0.046 Impressions: Chest X-Ray 10/26/18 14:13 IMPRESSION: NO ACUTE RADIOGRAPHIC FINDING IN THE CHEST. Facial Bones CT 10/26/18 14:14 IMPRESSION: 1. No acute intracranial pathology. 2. No displaced fractures of the facial bones. 3. Soft tissue laceration and hematoma of the forehead. EVIDENCE OF ACUTE STROKE: NO. Head CT 10/26/18 14:14 IMPRESSION: 1. No acute intracranial pathology. 2. No displaced fractures of the facial bones. 3. Soft tissue laceration and hematoma of the forehead. EVIDENCE OF ACUTE STROKE: NO. Cervical Spine CT 10/26/18 14:15 IMPRESSION: No fracture or static subluxation of the cervical spine. Chest/Abdomen CTA 10/26/18 16:08 IMPRESSION: NORMAL CTA OF THE CHEST. NO PULMONARY EMBOLI. Head MRI 10/29/18 00:00 IMPRESSION: ATROPHY AND CHRONIC MICRO-VASCULAR ISCHEMIC CHANGES. SINUS DISEASE. NO ACUTE FINDINGS. EVIDENCE OF ACUTE STROKE: NO. Assessment and Plan - Diagnosis (1) Hyponatremia Is this a current diagnosis for this admission?: Yes Plan: Hypotonic hyponatremia. Serum osmolarity ordered and came back very low. Possible beer potomania but will send for urine sodium and urine osm as well. He was placed on fluid restriction on admission and this appears to have gradually improve his Sodium level. (2) Alcohol withdrawal delirium Is this a current diagnosis for this admission?: Yes Plan: Improved. Patient is oriAtivan to 2 mg q4h prn. Continue dailythiamine and folate. (3) Hypertension Is this a current diagnosis for this admission?: Yes Plan: Alcohol withdrawal likely contributing on top of chronic HTN. Continue PO Lopressor. (4) Hypokalemia Is this a current diagnosis for this admission?: Yes Plan: Secondary to malnutrition Daily chemistries replace with po KCl supplements - Time Time Spent with patient: 15-24 minutes Medications reviewed and adjusted accordingly: Yes Anticipated discharge: Home - Inpatient Certification Based on my medical assessment, after consideration of the patient's comorbidit ies, presenting symptoms, or acuity I expect that the services needed warrant INPATIENT care.: Yes I certify that my determination is in accordance with my understanding of [place] [facility]'s requirements for reasonable and necessary INPATIENT services [42 CFR 412.3e].: Yes Medical Necessity: Risk of Complication if Not Cared For in Hospital
[2018-11-02] MEDS: HEPARIN SOD (PORCINE) 5,000 UNIT/ML 1 ML SYRINGE SUBCUT SCH ×2 (05:12→13:04)
[2018-11-02 05:49] LABS: ANION GAP 11 (5-19); BLOOD UREA NITROGEN 9 mg/dL (7-20); CALCIUM 8.3 mg/dL (8.4-10.2); CARBON DIOXIDE 19 mmol/L (22-30); CHLORIDE 94 mmol/L (98-107); GLUCOSE 103 mg/dL (75-110); SODIUM 124.3 mmol/L (137-145)
[2018-11-02 05:59] LABS: POTASSIUM 3.1 mmol/L (3.6-5.0)
[2018-11-02] MEDS: DOCUSATE SODIUM 100 MG CAPSULE PO SCH (09:24)
[2018-11-02] MEDS: FLUTICASONE NASAL SPRAY 50 MCG/SPRY 120 SPRAY/16 GM NASL SCH (09:30)
[2018-11-02] MEDS: THIAMINE HCL 100 MG TABLET PO SCH (09:30)
[2018-11-02] MEDS: METOPROLOL TARTRATE 25 MG TABLET PO SCH (09:31)
[2018-11-02] MEDS: FOLIC ACID 1 MG TABLET PO SCH (09:31)
[2018-11-02] MEDS: IPRATROPIUM/ALBUTEROL 0.5-2.5 MG/3 ML AMPUL NEB SCH ×2 (09:41→15:58)
[2018-11-02] MEDS ORDERED: POTASSIUM CHLORIDE 10 MEQ CAPSULE.ER PO SCH (10:00)
[2018-11-02] MEDS ORDERED: SODIUM CHLORIDE 1 GM TABLET PO SCH (11:00)
[2018-11-02] MEDS ORDERED: LORAZEPAM INJ 2 MG/1 ML VIAL IV SCH (12:00)
--- NOTE | 2018-11-02 14:09 | PDOC TRANSFER SUMMARY ---
General - Admit/Disc Date/PCP Admission Date/Primary Care Provider: 10/26/18 18:51 Discharge Date: 11/02/18 - Discharge Diagnosis (1) Hyponatremia Is this a current diagnosis for this admission?: Yes (2) Alcohol withdrawal delirium Is this a current diagnosis for this admission?: Yes (3) Hypertension Is this a current diagnosis for this admission?: Yes (4) Hypokalemia Is this a current diagnosis for this admission?: Yes - Additional Information Resuscitation Status: Full Code Discharge Diet: As Tolerated Discharge Activity: Activity As Tolerated Home Medications: Acetaminophen [Tylenol 325 mg Tablet] 650 mg PO Q4HP PRN tablet 11/02/18 Folic Acid [Folvite 1 mg Tablet] 1 mg PO DAILY tablet 11/02/18 Metoprolol Tartrate [Lopressor 25 mg Tablet] 25 mg PO Q12 tablet 11/02/18 Ondansetron HCl/Pf [Zofran Inj/Pf 4 mg/2 ml Sdv] 4 mg IV Q8HP PRN vial 11/02/18 Potassium Chloride [Klor-Con 10 Meq Capsule ER] 40 meq PO DAILY capsule.er 11/02/18 Thiamine HCl [Thiamine 100 mg Tablet] 100 mg PO DAILY tablet 11/02/18 History of Present Illness Admission Date/PCP: 10/26/18 18:51 History of Present Illness: SONDRA GIPSON is a 67 year old male with a past medical history of alcohol dependence who presents with approximately 1 week of generalized weakness and at least 2 falls to the ground with inability return to standing. During each event he states he simply felt weak and his legs gave out. No loss of consciousness, limb shaking, dizziness or resulting headache, blurred vision nausea or vomiting. He did sustain a 4 cm laceration to the left forehead not requiring sutures. In the emergency room he is found with a sodium of 114, tremulous with global wheezing requiring albuterol, Atrovent and BiPAP. He denies history of COPD but has a [id number] smoking discontinuing 20 years ago. He admits to alcohol drinking habit of approximately 12 beers per day he denies a history of alcohol withdrawal, blackout or seizure but does not recall the last time he went without drinking. Hospital Course Hospital Course: This is a 67 year old male with a past medical history of chronic heavy smoking and alcohol dependence who presents with approximately 1 week of generalized weakness and at least 2 falls to the ground with inability return to standing. During each event he states he simply felt weak and his legs gave out. He was found to have profound hyponatremia and was also manifesting signs of alcohol withdrawal. Diagnosed with hypotonic hyponatremia, placed on free water restriction. Sodium increased from 114-->125. Patient received PT/OT while inpatient, he was observed to be very weak and had a great deal of weakness. Rehab services recommended acute rehab, patient was amendable to this. Plan to send patient to acute rehab, [place]. Physical Exam Vital Signs: Temp Pulse Resp BP Pulse Ox 98.6 F 83 16 167/74 H 96 11/02/18 11:28 11/02/18 11:28 11/02/18 11:28 11/02/18 11:28 11/02/18 11:28 Intake & Output 11/01/18 11/02/18 11/03/18 06:59 06:59 06:59 Intake Total 472 1413 237 Output Total 800 Balance 472 613 237 Weight 102.8 kg 96.3 kg General appearance: PRESENT: morbidly obese Head exam: PRESENT: atraumatic Eye exam: PRESENT: periorbital swelling - bruising and swelling secondary to fall, PERRLA Mouth exam: PRESENT: moist, tongue midline Neck exam: PRESENT: full ROM Respiratory exam: PRESENT: clear to auscultation martinez, symmetrical, unlabored Cardiovascular exam: PRESENT: RRR Pulses: PRESENT: normal radial pulses, normal dorsalis pedis pul GI/Abdominal exam: PRESENT: normal bowel sounds, soft Rectal exam: PRESENT: deferred Extremities exam: PRESENT: full ROM Musculoskeletal exam: PRESENT: ambulatory - WITH 2 PERSON ASSIST, full ROM Neurological exam: PRESENT: alert, awake, oriented to person, oriented to place, oriented to time, oriented to situation Psychiatric exam: PRESENT: appropriate affect Skin exam: PRESENT: dry, warm, other - FACIAL BRUISING IN MULTIPLE STAGES OF HEALING Results Laboratory Results: 10/27/18 02:33 11/02/18 04:36 11/01/18 11/02/18 01:00 04:36 Sodium 124.3 L Potassium 3.1 L Chloride 94 L Carbon Dioxide 19 L Anion Gap 11 BUN 9 Creatinine 0.44 L Est GFR ( Amer) > 60 Est GFR (Non-Af Amer) > 60 Glucose 103 Calcium 8.3 L Magnesium 2.0 Stool for White Cells NO WBCs SEEN 10/26/18 10/26/18 10/27/18 14:30 14:30 02:33 Creatine Kinase 2378 H 4848 H CK-MB (CK-2) 12.40 H Troponin I 0.053 10/27/18 10/27/18 02:33 14:52 Creatine Kinase 2275 H CK-MB (CK-2) 11.50 H Troponin I 0.046 Impressions: Chest X-Ray 10/26/18 14:13 IMPRESSION: NO ACUTE RADIOGRAPHIC FINDING IN THE CHEST. Facial Bones CT 10/26/18 14:14 IMPRESSION: 1. No acute intracranial pathology. 2. No displaced fractures of the facial bones. 3. Soft tissue laceration and hematoma of the forehead. EVIDENCE OF ACUTE STROKE: NO. Head CT 10/26/18 14:14 IMPRESSION: 1. No acute intracranial pathology. 2. No displaced fractures of the facial bones. 3. Soft tissue laceration and hematoma of the forehead. EVIDENCE OF ACUTE STROKE: NO. Cervical Spine CT 10/26/18 14:15 IMPRESSION: No fracture or static subluxation of the cervical spine. Chest/Abdomen CTA 10/26/18 16:08 IMPRESSION: NORMAL CTA OF THE CHEST. NO PULMONARY EMBOLI. Head MRI 10/29/18 00:00 IMPRESSION: ATROPHY AND CHRONIC MICRO-VASCULAR ISCHEMIC CHANGES. SINUS DISEASE. NO ACUTE FINDINGS. EVIDENCE OF ACUTE STROKE: NO. Status: Imported from PACS Transfer Plan - Disposition Transfer Plan: PATIENT WILL CONTINUE ON SALT TABS FOR 1 WEEK AND WILL NEED FOLLOW UP BMP IN 1 WEEK. ADDITIONALLY, PATIENT HAS BEEN INSTRUCTED TO LIMIT HIS FREE WATER INTAKE. HE MAY HAVE SODA, JUICE AND GATORADE - Time Spent with Patient Time spent with patient: Greater than 30 Minutes Qualifiers - * PATIENT BEING DISCHARGED WITH ANY OF THE FOLLOWING DIAGNOSIS: No
[2018-11-02 15:19] VITALS: BP 141/65
== END 2018-11-02 16:21 | DRG 897 ==
LOC: ER 13:49 → EH 18:51 → ICU 23:17 → 3N 10-27 05:35
PROVIDERS: ADMIT Internal Medicine; ATTEND Internal Medicine
PROC: 3E0234Z Introduction of Serum, Toxoid and Vaccine into Muscle, Percutaneous Approach (ICD-10-PCS; principal; 2018-10-26)
DX: F10.231 Alcohol dependence with withdrawal delirium (principal); E87.1 Hypo-osmolality and hyponatremia; J44.0 Chronic obstructive pulmonary disease with (acute) lower respiratory infection; J44.1 Chronic obstructive pulmonary disease with (acute) exacerbation; E87.6 Hypokalemia; J20.9 Acute bronchitis, unspecified; E87.8 Other disorders of electrolyte and fluid balance, not elsewhere classified; S01.81XA Laceration without foreign body of other part of head, initial encounter; W19.XXXA Unspecified fall, initial encounter; Y90.0 Blood alcohol level of less than 20 mg/100 ml; Y93.9 Activity, unspecified; Y92.89 Other specified places as the place of occurrence of the external cause; Z87.891 Personal history of nicotine dependence; Z23 Encounter for immunization
CPT/HCPCS: 36415; 36600; 70450; 70486; 70551; 71046; 71275; 72125; 80048; 80053; 80076; 80307; 81001; 82550; 82553; 82803; 82962; 83036; 83605; 83690; 83735; 83930; 83935; 84100; 84300; 84443; 84484; 85025; 85379; 85610; 87040; 87045; 87086; 87205; 87493; 89055; 90471; 90715; 93005; 93010; 94640; 94667; 94668; 94799; 96360; 99285; J0360; J0456; J1644; J1940; J2060; J3411; J3480; J3490; J7030; J7050; J7060; J7620

== ENCOUNTER → 2019-04-11 | Outpatient (CLI) | payer MEDICARE, OTHER ==
--- NOTE | 2019-04-11 10:33 | RADIOLOGY REPORT (SQ) ---
EXAM DESCRIPTION: CHEST PA/LATERAL COMPLETED DATE/TIME: 04/11/2019 10:26 am REASON FOR STUDY: PRE-OP COMPARISON: 10/26/2018 EXAM PARAMETERS: NUMBER OF VIEWS: two views TECHNIQUE: Digital Frontal and Lateral radiographic views of the chest acquired. RADIATION DOSE: NA LIMITATIONS: none FINDINGS: LUNGS AND PLEURA: No opacities, masses or pneumothorax. No pleural effusion. MEDIASTINUM AND HILAR STRUCTURES: No masses or contour abnormalities. HEART AND VASCULAR STRUCTURES: Heart normal size. No evidence for failure. BONES: No acute findings. HARDWARE: None in the chest. OTHER: No other significant finding. IMPRESSION: NO SIGNIFICANT RADIOGRAPHIC FINDING IN THE CHEST. TECHNICAL DOCUMENTATION: JOB ID: [id number] [employer]- All Rights Reserved Reading location - IP/workstation name: [email or web address]
[2019-04-11 11:10] LABS: APPEARANCE,URINE CLEAR; BILIRUBIN,URINE NEGATIVE (NEGATIVE); COLOR,URINE YELLOW; GLUCOSE, URINE NEGATIVE (NEGATIVE); KETONES,URINE NEGATIVE (NEGATIVE); LEUKOCYTE ESTERASE,URINE NEGATIVE (NEGATIVE); NITRITE,URINE NEGATIVE (NEGATIVE); PROTEIN,URINE NEGATIVE (NEGATIVE); URINE SPECIFIC GRAVITY 1.014; UROBILINOGEN,URINE NEGATIVE mg/dL (<2.0)
[2019-04-11 11:14] LABS: ABSOLUTE BASOPHILS # (AUTO) 0.1 10^3/uL (0.0-0.2); ABSOLUTE EOSINOPHILS # (AUTO) 0.1 10^3/uL (0.0-0.6); ABSOLUTE LYMPHOCYTES (AUTO) 2.5 10^3/uL (0.5-4.7); ABSOLUTE MONOCYTES (AUTO) 0.6 10^3/uL (0.1-1.4); ABSOLUTE NEUT (AUTO) 4.6 10^3/uL (1.7-8.2); BASOPHILS % (AUTO) 0.8 % (0-2); EOSINOPHILS % (AUTO) 0.8 % (0-6); HEMATOCRIT 43.8 % (37.9-51.0); HEMOGLOBIN 15.2 g/dL (13.5-17.0); LYMPHOCYTES % (AUTO) 32.3 % (13-45); MEAN CORPUSCULAR HEMOGLOBIN 31.6 pg (27.0-33.4); MEAN CORPUSCULAR HGB CONC 34.6 g/dL (32.0-36.0); MEAN CORPUSCULAR VOLUME 91 fl (80-97); MONOCYTES % (AUTO) 7.6 % (3-13); PLATELET COUNT 177 10^3/uL (150-450); SEGMENTED NEUTROPHILS % (AUTO) 58.5 % (42-78); TOTAL CELLS COUNTED % (AUTO) 100 %; WHITE BLOOD COUNT 7.8 10^3/uL (4.0-10.5)
[2019-04-11 11:33] LABS: ANION GAP 12 (5-19); BLOOD UREA NITROGEN 11 mg/dL (7-20); CALCIUM 9.8 mg/dL (8.4-10.2); CARBON DIOXIDE 26 mmol/L (22-30); CHLORIDE 99 mmol/L (98-107); GLUCOSE 121 mg/dL (75-110); POTASSIUM 5.1 mmol/L (3.6-5.0)
--- NOTE | 2019-04-11 20:56 | EKG REPORT ---
SEVERITY:- ABNORMAL ECG - SINUS RHYTHM MULTIPLE VENTRICULAR PREMATURE COMPLEXES RIGHT BUNDLE BRANCH BLOCK : Confirmed by: Brittany Valenzuela MD 11-Apr-2019 20:54:57
== END ==
LOC: OD 10:16
PROVIDERS: ATTEND Orthopaedic Surgery
DX: Z01.810 Encounter for preprocedural cardiovascular examination (principal); Z01.811 Encounter for preprocedural respiratory examination; Z01.812 Encounter for preprocedural laboratory examination; M16.12 Unilateral primary osteoarthritis, left hip; I10 Essential (primary) hypertension
CPT/HCPCS: 36415; 71046; 80048; 81001; 85025; 93005; 93010

== ENCOUNTER 2019-04-26 05:40 | Inpatient (IN) | payer MEDICARE, OTHER ==
[~2019-04-26 05:40] MED LIST: CEFAZOLIN INJ 1 GM VIAL INJ PRN; CEFAZOLIN INJ 1 GM VIAL ONE; LACTATED RINGERS 1000 ML IV PRN; LIDOCAINE 0.5% INJ-PF (5 MG/ML) 50 ML SDV SUBCUT PRN; OXYCODONE HCL SR 10 MG TABLET PO ONE; PANTOPRAZOLE SODIUM 20 MG TABLET.DR PO ONE; VANCOMYCIN HCL 1,000 MG in DEXTROSE 5%-WATER 250 ML IV PRN; VANCOMYCIN HCL INJ 1000 MG VIAL ONE
[2019-04-26] MEDS ORDERED: KETOROLAC TROMETHAMINE 60 MG/2 ML SDV ONE (06:55)
[2019-04-26] MEDS ORDERED: MIDAZOLAM 2 MG/2 ML INJ ONE (06:55)
[2019-04-26] MEDS ORDERED: EPHEDRINE SULFATE INJ 50 MG/1 ML AMPULE ONE (06:55)
[2019-04-26] MEDS ORDERED: TRANEXAMIC ACID INJ/PF 1,000 MG/10 ML SDV ONE ×2 (06:55→09:44)
[2019-04-26] MEDS ORDERED: FENTANYL CITRATE INJ/PF 100 MCG/2 ML AMPUL ONE (06:55)
[2019-04-26] MEDS ORDERED: ONDANSETRON HCL INJ/PF 4 MG/2 ML SDV ONE (06:55)
[2019-04-26] MEDS ORDERED: DEXAMETHASONE SOD PHOSPHATE INJ 4 MG/1 ML VIAL ONE (06:55)
[2019-04-26] MEDS ORDERED: PROPOFOL INJ 200 MG/20 ML VIAL IV ONE ×2 (06:56→09:01)
[2019-04-26] MEDS ORDERED: MORPHINE SULFATE 10 MG/ML INJ ONE (06:56)
[2019-04-26] MEDS ORDERED: LIDOCAINE 0.5% INJ-PF (5 MG/ML) 50 ML SDV ONE (06:59)
[2019-04-26] MEDS ORDERED: BUPIVACAINE HCL 0.25% /EPINEPHRINE INJ/PF 30 ML SDV ONE (07:09)
[2019-04-26] MEDS ORDERED: DIPHENHYDRAMINE HCL 50 MG/ML VIAL IV PRN ×2 (08:20→08:28)
[2019-04-26] MEDS ORDERED: OXYCODONE-ACETAMINOPHEN 5-325 MG TABLET PO PRN ×2 (08:20)
[2019-04-26] MEDS ORDERED: PROMETHAZINE HCL INJ 25 MG/1 ML VIAL IV PRN ×2 (08:20)
[2019-04-26] MEDS ORDERED: MORPHINE SULFATE 10 MG/ML INJ IV PRN (08:20)
[2019-04-26] MEDS ORDERED: FENTANYL CITRATE INJ/PF 100 MCG/2 ML AMPUL IV PRN ×3 (08:20)
[2019-04-26] MEDS ORDERED: ONDANSETRON HCL INJ/PF 4 MG/2 ML SDV IV PRN ×3 (08:20→15:30)
[2019-04-26] MEDS ORDERED: MEPERIDINE HCL/PF INJ 25 MG/1 ML DISP.SYRIN IV PRN (08:20)
[2019-04-26] MEDS ORDERED: ZOLPIDEM TARTRATE 5 MG TABLET PO PRN (08:28)
[2019-04-26] MEDS ORDERED: RINGERS SOLUTION,LACTATED 1,000 ML IV PRN (08:28)
[2019-04-26] MEDS ORDERED: ONDANSETRON 4 MG TAB.RAPDIS PO PRN ×2 (08:28→15:30)
[2019-04-26] MEDS ORDERED: MAG HYDROX/AL HYDROX/SIMETH SUSP 30 ML UDCUP PO PRN (08:28)
[2019-04-26] MEDS ORDERED: ACETAMINOPHEN 325 MG TABLET PO PRN (08:28)
--- NOTE | 2019-04-26 08:35 | Operative Report ---
Operative Report DATE OF SURGERY: 04/26/19 PREOPERATIVE DIAGNOSIS: Left hip arthritis OPERATION: Left hip arthroplasty SURGEON: JOHN ESPINOSA ANESTHESIA: Spinal TISSUE REMOVED OR ALTERED: Femoral head to pathology ESTIMATED BLOOD LOSS: 100 PROCEDURE: Implants used: Femur: Tsaile Accolade 2 stem, size 6 Acetabular shell: 58 mm hemispherical shell Liner: 36 mm flat cross-link polyethylene liner Head: 36 mm chrome cobalt head -5 neck The patient is placed in a right lateral decubitus position on the operating table. The left lower extremity and hindquarter is prepped and draped in a sterile fashion. A curvilinear incision was made over the greater trochanter a posterior approach the hip was taken. The femoral head is dislocated and the femoral neck transected using an oscillating saw. Attention was next turned to the acetabulum. Soft tissues cleared off the acetabulum using electrocautery. The acetabulum was then prepared using a series of hemispherical reamers until a T8 millimeters reamer is seated. Subsequently a 58 millimeters David titanium hemispherical shell is impacted into position. A standard flat 36 millimeters cross-link liner is impacted into the shell. Attention was next turned to the femur. Access is gained to the femoral canal using a box osteotome to the piriformis fossa. The femur is then prepared using a series of broaches until a number 6 broach is seated. A trial reduction was now performed using a 36 millimeters head with -5 neck. Preoperative leg length was recreated and is excellent anterior posterior stability. A decision was made to proceed with the above construct. All trial implants were removed. The wound is irrigated with pulsed lavage. A number 6 stem is impacted into the femoral canal. A trial reduction was again performed with a 36 mm head and a -5 neck. Findings as previously. The hip was dislocated one last time and the final chrome-cobalt head is impacted onto the trunnion. The hip was reduced. Wound is copiously irrigated with pulsed lavage. Sent closed in layers using interrupted Vicryl followed by fuentes. A sterile dressing is applied and the patient's returned to recovery room in satisfactory patient.
[2019-04-26] MEDS ORDERED: TRANEXAMIC ACID INJ/PF 1,000 MG/10 ML SDV IV ONE (10:00)
[2019-04-26] MEDS ORDERED: (PENDING PHARMACY ID) (Multivit-Min/Fa/Lycopen/Lutein [Men 50 Plus Multivitamin Tab] 1 TAB PO SCH (10:00)
--- NOTE | 2019-04-26 11:15 | RADIOLOGY REPORT (SQ) ---
EXAM DESCRIPTION: PELVIS AP COMPLETED DATE/TIME: 04/26/2019 11:05 am REASON FOR STUDY: Post Op Long Cassette in PACU M16.12 UNILATERAL PRIMARY OSTEOARTHRITIS, LEFT HIP COMPARISON: None. NUMBER OF VIEWS: One view TECHNIQUE: Digital radiographic images of the pelvis post-procedure LIMITATIONS: None. FINDINGS: BONES: No worrisome or unexpected findings post-procedure. DEVICE: Total hip replacement. Components of the device in appropriate location. SOFT TISSUES: No worrisome findings. Expected postoperative soft tissue changes. Vascular calcificat ions. IMPRESSION: SATISFACTORY POSTOPERATIVE PELVIS. TECHNICAL DOCUMENTATION: JOB ID: [id number] [employer]- All Rights Reserved Reading location - IP/workstation name: [email or web address]
[2019-04-26] MEDS: ASPIRIN 81 MG TABLET, ENT COATED PO SCH (11:37)
[2019-04-26] MEDS: OXYCODONE HCL IR 5 MG TABLET PO PRN ×2 (11:50→18:57)
[2019-04-26] MEDS: IBUPROFEN 800 MG in NORMAL SALINE 250 ML IV SCH ×2 (15:09→21:09)
[2019-04-26] MEDS: SENNOSIDES/DOCUSATE 8.6-50 MG 1 EACH TABLET PO SCH (17:59)
[2019-04-26] MEDS ORDERED: VANCOMYCIN HCL 1,000 MG in DEXTROSE 5%-WATER 250 ML IV ONE (20:28)
[2019-04-26] MEDS: OXYCODONE HCL SR 10 MG TABLET PO SCH (21:09)
[2019-04-27 04:41] LABS: HEMATOCRIT 38.8 % (37.9-51.0); HEMOGLOBIN 13.5 g/dL (13.5-17.0); MEAN CORPUSCULAR HEMOGLOBIN 31.7 pg (27.0-33.4); MEAN CORPUSCULAR HGB CONC 34.8 g/dL (32.0-36.0); MEAN CORPUSCULAR VOLUME 91 fl (80-97); PLATELET COUNT 156 10^3/uL (150-450); RED BLOOD COUNT 4.26 10^6/uL (4.35-5.55); RED CELL DISTRIBUTION WIDTH 13.1 % (11.5-14.0); WHITE BLOOD COUNT 9.4 10^3/uL (4.0-10.5)
[2019-04-27 05:00] LABS: ANION GAP 11 (5-19); BLOOD UREA NITROGEN 7 mg/dL (7-20); CALCIUM 8.6 mg/dL (8.4-10.2); CARBON DIOXIDE 26 mmol/L (22-30); CHLORIDE 94 mmol/L (98-107); GLUCOSE 120 mg/dL (75-110); POTASSIUM 4.4 mmol/L (3.6-5.0)
[2019-04-27] MEDS: IBUPROFEN 800 MG in NORMAL SALINE 250 ML IV SCH (05:22)
[2019-04-27] MEDS ORDERED: PANTOPRAZOLE SODIUM 40 MG TABLET.DR PO SCH (06:00)
--- NOTE | 2019-04-27 07:16 | PDOC DISCHARGE SUMMARY ---
Impression - Admit/DC Date/PCP Admission Date/Primary Care Provider: 04/26/19 05:40 SAM BAH, Discharge Date: 04/27/19 - Discharge Diagnosis (1) Arthritis of left hip Is this a current diagnosis for this admission?: Yes - Additional Information Resuscitation Status: Full Code Discharge Diet: As Tolerated, Regular Discharge Activity: Balance Activity w/Rest, No tub bath Referrals: JOHN ESPINOSA MD [ACTIVE STAFF] - 05/10/19 1:30 pm Home Medications: Folic Acid [Folvite 1 mg Tablet] 1 mg PO DAILY tablet 11/02/18 Potassium Chloride [Klor-Con 10 Meq Capsule ER] 40 meq PO DAILY capsule.er 11/02/18 Metoprolol Succinate [Toprol Xl 25 mg Tab.sr] 25 mg PO DAILY 04/12/19 Multivit-Min/FA/Lycopen/Lutein [Men 50 Plus Multivitamin Tab] 1 tab PO DAILY 04/20/19 History of Present Illiness History of Present Illness: SONDRA GIPSON is a 68 year old male Physical Exam Vital Signs: Temp Pulse Resp BP Pulse Ox 37.0 C 89 18 120/62 97 04/27/19 00:36 04/27/19 00:36 04/27/19 00:36 04/27/19 00:36 04/27/19 00:36 Intake & Output 04/26/19 04/27/19 04/28/19 06:59 06:59 06:59 Intake Total 0 9445 Output Total 8475 Balance 0 970 Weight 94.9 kg Results Laboratory Results: WBC 9.4 10^3/uL (4.0-10.5) 04/27/19 03:28 RBC 4.26 10^6/uL (4.35-5.55) L 04/27/19 03:28 Hgb 13.5 g/dL (13.5-17.0) 04/27/19 03:28 Hct 38.8 % (37.9-51.0) 04/27/19 03:28 MCV 91 fl (80-97) 04/27/19 03:28 MCH 31.7 pg (27.0-33.4) 04/27/19 03:28 MCHC 34.8 g/dL (32.0-36.0) 04/27/19 03:28 RDW 13.1 % (11.5-14.0) 04/27/19 03:28 Plt Count 156 10^3/uL (150-450) 04/27/19 03:28 Sodium 131.3 mmol/L (137-145) L 04/27/19 03:28 Potassium 4.4 mmol/L (3.6-5.0) 04/27/19 03:28 Chloride 94 mmol/L (98-107) L 04/27/19 03:28 Carbon Dioxide 26 mmol/L (22-30) 04/27/19 03:28 Anion Gap 11 (5-19) 04/27/19 03:28 BUN 7 mg/dL (7-20) 04/27/19 03:28 Creatinine 0.69 mg/dL (0.52-1.25) 04/27/19 03:28 Est GFR ( Amer) > 60 (>60) 04/27/19 03:28 Est GFR (MDRD) Non-Af > 60 (>60) 04/27/19 03:28 Glucose 120 mg/dL (75-110) H 04/27/19 03:28 Calcium 8.6 mg/dL (8.4-10.2) 04/27/19 03:28 Blood Type A POSITIVE 04/26/19 06:09 Antibody Screen NEGATIVE 04/26/19 06:09 Impressions: Pelvis X-Ray 04/26/19 08:31 IMPRESSION: SATISFACTORY POSTOPERATIVE PELVIS. Stroke Is this a Stroke Patient?: No Stroke Pt being discharged on Anti-thrombolytic therapy?: Yes Acute Heart Failure - Is this a Heart Failure Patient?: No
[2019-04-27] MEDS: ASPIRIN 81 MG TABLET, ENT COATED PO SCH (09:05)
[2019-04-27] MEDS: OXYCODONE HCL SR 10 MG TABLET PO SCH (09:05)
[2019-04-27] MEDS: SENNOSIDES/DOCUSATE 8.6-50 MG 1 EACH TABLET PO SCH (09:05)
[2019-04-27] MEDS: OXYCODONE HCL IR 5 MG TABLET PO PRN (09:23)
[2019-04-27] MEDS ORDERED: FOLIC ACID 1 MG TABLET PO SCH (10:00)
[2019-04-27] MEDS ORDERED: METOPROLOL SUCCINATE 25 MG TAB.SR.24H PO SCH (10:00)
[2019-04-27] MEDS ORDERED: POTASSIUM CHLORIDE 10 MEQ CAPSULE.ER PO SCH (10:00)
[2019-04-27] MEDS ORDERED: PRENATAL VITAMIN W DHA CAPSULE PO SCH (10:00)
[2019-04-27 11:54] VITALS: BP 141/60
[2019-04-28] MEDS ORDERED: OXYCODONE HCL SR 10 MG TABLET PO PRN (05:00)
[2019-04-28] MEDS ORDERED: IBUPROFEN 800 MG in NORMAL SALINE 250 ML IV PRN (05:00)
[2019-04-28] MEDS ORDERED: PANTOPRAZOLE SODIUM 20 MG TABLET.DR PO PRN (05:00)
[2019-04-28] MEDS ORDERED: BUPIVACAINE INJ/PF LIPOSOME/PF 266 MG/20 ML SDV INJ PRN (05:00)
== END 2019-04-27 12:35 | disposition home health service (06) | DRG 470 ==
LOC: INOR 05:40 → 4S 10:11
PROVIDERS: ADMIT Orthopaedic Surgery; ATTEND Orthopaedic Surgery
PROC: 0SRB02A Replacement of Left Hip Joint with Metal on Polyethylene Synthetic Substitute, Uncemented, Open Approach (ICD-10-PCS; principal; 2019-04-26 07:30)
DX: M16.12 Unilateral primary osteoarthritis, left hip (principal); I10 Essential (primary) hypertension; J44.9 Chronic obstructive pulmonary disease, unspecified; F10.10 Alcohol abuse, uncomplicated; Y90.9 Presence of alcohol in blood, level not specified
CPT/HCPCS: 36415; 72170; 80048; 84132; 85027; 86850; 86900; 86901; 88304; 88311; 94799; C1776; J0690; J1100; J1741; J1885; J2250; J2270; J2405; J2704; J3010; J3370; J3490; J7050; J7060; J7120